=== PATIENT | male | born 1930 | race Caucasian/White ===

== ENCOUNTER 2016-09-19 15:22 | Inpatient (IN) ==
[2016-09-19] MEDS ORDERED: *HR* Labetalol 20 MG/4 ML SYRINGE IVP ONE (16:18)
--- NOTE | 2016-09-19 16:20 | Emergency Department Note ---
Disposition Clinical Impression: Subcapital fracture of neck of right femur, Elevated troponin, Atrial fibrillation with RVR, Acute on chronic renal insufficiency Disposition: Admitted As Inpatient Condition: Fair Time of Disposition: 18:23 Fall HPI - General Chief Complaint: ED Fall Stated Complaint: Fall - Right Hip FX Time Seen by Provider: 09/19/16 15:27 Source: patient, EMS Mode of arrival: EMS Limitations: age, other (dementia) Nursing Notes Reviewed: Yes Vital Signs Reviewed: Yes - History of Present Illness HPI Narrative: Mr. Vergara, an 85yo male, presents from assisted via EMS with concerns regarding right hip fracture. Patient rolled out of bed and landed on his right hip. He does not remember the event. He arrives with Xray report from the facility indicating right hip fracture. No family currently at bedside. He denies any pain while laying still in bed. Patient is on aspirin and plavix for chronic atrial fibrillation. Patient's granddaughter, Mary, is bedside. She notes he is at his baseline mentation with no change in affect. - Related Data Allergies Allergy/AdvReac Type Severity Reaction Status Date / Time Penicillins [PCN] Allergy See Verified 09/19/16 15:25 Comments All systems ED: reviewed and negative except as stated. Fall PMH - Past Medical History Medical history: Reports: atrial fibrillation, diabetes, hyperlipidemia, hypertension, myocardial infarction Psychiatric history: Reports: no psych history - Social History Smoking Status: Never smoker Alcohol use: Reports: none Drug use: Reports: none Physical Exam - General Limitations: altered mental status General appearance: alert, in no apparent distress - Head Head exam: atraumatic, normocephalic, normal inspection - Eye Eye exam: Present: normal appearance, PERRL - ENT ENT exam: mucous membranes moist - Neck Neck exam: Present: normal inspection, full ROM, trachea midline. Absent: tenderness - Chest Chest inspection: Present: normal inspection, symmetric chest wall rise. Absent : tenderness - Respiratory Respiratory exam: Present: normal lung sounds bilaterally. Absent: respiratory distress, wheezes, stridor, accessory muscle use, prolonged expiratory phase - Cardiovascular Cardiovascular exam: Present: tachycardia, irregular rhythm, normal heart sounds - Abdominal Exam Abdominal exam: Present: soft, Non-Tender, normal bowel sounds. Absent: distention, guarding - Extremities Exam Extremities exam: Present: normal capillary refill. Absent: tenderness, pedal edema, joint swelling - Expanded Upper Extremity Exam Shoulder exam: Present: normal inspection Arm exam: Present: normal inspection Elbow exam: Present: normal inspection Forearm/Wrist exam: Present: normal inspection Hand exam: Present: normal inspection - Expanded Lower Extremity Exam Hip/Pelvis exam: Present: external rotation (bilaterally), shortening (right short vs left). Absent: tenderness, swelling, abrasion, ecchymosis, deformity, crepitus, erythema, internal rotation Upper leg exam: Present: normal inspection. Absent: tenderness, swelling, ecchymosis, deformity, erythema Knee exam: Present: normal inspection Lower leg exam: Present: normal inspection Ankle exam: Present: normal inspection Foot/toe exam: Present: normal inspection Neurovascular/Tendon exam: Present: normal capillary refill. Absent: sensory deficit Gait: not tested/not observed - Back Exam Back exam: Present: normal inspection. Absent: tenderness - Neurological Exam Neurological exam: Present: alert. Absent: oriented X3 (Patient's baseline per daughter bedside) - Psychiatric Psychiatric exam: Present: normal affect, normal mood - Skin Skin exam: Present: warm, dry, intact, normal color. Absent: rash, erythema, pallor, mottled Course Course Narrative: EKG shows A. fib with RVR with rate of 110. We will provide 5 mg IV Lopressor and reevaluate. Patient's rhythm is into the 80s to low 100s which is improved from 120s to 140s. Patient's labwor has returned; mildly elevated creatinine and troponin 0.07. Troponin could be from either A. fib with RVR and/or elevated creatinine. He denies chest pain when asked. Initial pelvic and right hip x-ray were not definitive in diagnosing fracture pathology. CT hip and pelvis shows mildly displaced subcapital fracture proximal right femur. CT head unremarkable per radiology read. 17:40 Spoke with on-call orthopedist, Dr. Nick, who agrees to consult on the patient with admission to hospitalist for his other medical problems. 17:45 Spoke with the admitting hospitalist, Dr. Avina, who agrees to accept the patient. Vital Signs Temperature 98.1 F 09/19/16 15:26 Pulse Rate 110 09/19/16 15:26 Respiratory Rate 18 09/19/16 15:26 Blood Pressure 135/104 09/19/16 15:26 O2 Sat by Pulse Oximetry 95 09/19/16 15:26 Temperature 98.1 F 09/19/16 15:26 Pulse Rate 103 09/19/16 17:29 Respiratory Rate 18 09/19/16 17:29 Blood Pressure 125/106 09/19/16 17:29 O2 Sat by Pulse Oximetry 95 09/19/16 17:29 Oxygen Delivery Oxygen Delivery Room Air Fall - Medical Records Medical records reviewed: Yes I reviewed the patient's medical records. - Lab Data Lab results reviewed: Yes I reviewed the patient's lab results. Result diagrams: 09/19/16 16:20 09/19/16 16:20 Lab Results 09/19/16 09/19/16 09/19/16 Range/Units 16:20 16:20 16:20 WBC 15.4 H D (4.3-11.1) K/mcL RBC 3.67 L (4.19-5.50) M/mcL Hgb 11.7 L D (12.9-16.9) g/dL Hct 35.1 L (37.5-50.1) % MCV 95.6 (83.0-100.0) fL MCH 31.9 (28.0-33.3) pg MCHC 33.3 (31.6-35.5) g/dL RDW 14.2 (11.5-14.5) % Plt Count 217 (140-400) K/mcL MPV 10.7 (9.4-12.4) fL Immature Gran % 0.3 (0-4) % Seg Neutrophils % 82.7 % Lymphocytes % 10.1 % Monocytes % 5.4 % Eosinophils % 1.0 % Basophils % 0.5 % Neutrophils # 12.7 H (1.6-8.9) K/mcL Lymphocytes # 1.6 (0.6-4.6) K/mcL Monocytes # 0.8 (0.0-1.3) K/mcL Eosinophils # 0.2 (0.0-0.6) K/mcL Basophils # 0.1 (0.0-0.2) K/mcL PT 11.8 (9.4-12.1) Seconds INR 1.1 APTT 29.6 (26.0-36.0) Seconds Sodium 138 (136-145) mEq/L Potassium 4.2 (3.5-4.5) mEq/L Chloride 102 (98-109) mEq/L Carbon Dioxide 23 (19-29) mEq/L BUN 23 (8-26) mg/dL Creatinine 2.12 H (0.72-1.25) mg/dL Est GFR ( Amer) 36 L (> 60) Est GFR (Non-Af Amer) 30 L (> 60) BUN/Creatinine Ratio 11 (6-26) Glucose 152 H (70-99) mg/dL Calculated Osmolality 293 (280-300) Calcium 10.3 (8.6-10.8) mg/dL Magnesium 1.8 (1.6-2.6) mg/dL Troponin I (0-0.03) ng/mL 09/19/16 Range/Units 16:20 WBC (4.3-11.1) K/mcL RBC (4.19-5.50) M/mcL Hgb (12.9-16.9) g/dL Hct (37.5-50.1) % MCV (83.0-100.0) fL MCH (28.0-33.3) pg MCHC (31.6-35.5) g/dL RDW (11.5-14.5) % Plt Count (140-400) K/mcL MPV (9.4-12.4) fL Immature Gran % (0-4) % Seg Neutrophils % % Lymphocytes % % Monocytes % % Eosinophils % % Basophils % % Neutrophils # (1.6-8.9) K/mcL Lymphocytes # (0.6-4.6) K/mcL Monocytes # (0.0-1.3) K/mcL Eosinophils # (0.0-0.6) K/mcL Basophils # (0.0-0.2) K/mcL PT (9.4-12.1) Seconds INR APTT (26.0-36.0) Seconds Sodium (136-145) mEq/L Potassium (3.5-4.5) mEq/L Chloride (98-109) mEq/L Carbon Dioxide (19-29) mEq/L BUN (8-26) mg/dL Creatinine (0.72-1.25) mg/dL Est GFR ( Amer) (> 60) Est GFR (Non-Af Amer) (> 60) BUN/Creatinine Ratio (6-26) Glucose (70-99) mg/dL Calculated Osmolality (280-300) Calcium (8.6-10.8) mg/dL Magnesium (1.6-2.6) mg/dL Troponin I 0.07 H* (0-0.03) ng/mL - Radiology Data Radiology results reviewed: Yes I reviewed the patient's radiology results. Chest X-Ray 09/19/16 15:32 IMPRESSION: 1. Stable chronic cardiomegaly, without acute cardiopulmonary disease. 2. Apparent foreshortening of the right femoral neck may suggest an acute subcapital fracture of the right hip. Consider further detailed evaluation with a dedicated pelvic CT without contrast. D/ / 09/19/2016 16:22:10 Vineet Gonzales MD / Lulu Andersen Interpreting Provider: Vineet Gonzales MD Hip X-Ray 09/19/16 15:33 IMPRESSION: 1. Stable chronic cardiomegaly, without acute cardiopulmonary disease. 2. Apparent foreshortening of the right femoral neck may suggest an acute subcapital fracture of the right hip. Consider further detailed evaluation with a dedicated pelvic CT without contrast. D/ / 09/19/2016 16:22:10 Vineet Gonzales MD / Lulu Andersen Interpreting Provider: Vineet Gonzales MD Head CT 09/19/16 16:32 IMPRESSION: No acute intracranial abnormality. D/ / Sheba Marcus Cha, MD / Sheba Marcus Cha, MD Interpreting Provider: Sheba Marcus Cha, MD Pelvis CT 09/19/16 16:32 IMPRESSION: 1. Acute mildly displaced subcapital fracture of the proximal right femur. No additional pelvic fracture is identified. 2. Partially visualized 4.8 x 4.4 cm aneurysm of the distal abdominal aorta. Suggest further characterization of this abnormality with a routine follow-up nonurgent CTA of the abdomen and pelvis. D/ / 09/19/2016 17:20:48 Vineet Gonzales MD / Lulu Andersen Interpreting Provider: Vineet Gonzales MD - EKG Data EKG attestation: Yes I reviewed and interpreted this EKG. EKG results narrative: Patient's EKG was interpreted by myself without benefit of formal cardiology interpretation showing the patient is in atrial fibrillation with RVR at a rate of 1 10 bpm with nonspecific T-wave changes. This is unchanged from her prior EKG that was placed on the chart that was from May 182012. Attestation Statement - Attestation Attestation: I personally interviewed and examined this patient and my medical decision- making was reviewed with the ED Resident Physician, Dr. Pierre I agree with the documented findings, disposition and treatment plan as described except to the extent set forth below. Patient is an 85-year-old elderly white male brought in to us from an extended care facility following a fall from his bed. Patient was sent here after he had plain film imaging done at the facility that showed a right hip fracture. Patient has a history of atrial fibrillation and arrives with a tachycardic rate , irregular, but stable blood pressure. Patient appears in no acute distress is quite pleasant and smiling verbally responds to questions but is pleasantly confused oriented to person and place only. Patient states he does not remember falling from his bed. Patient denies any pain complaints or issues until you try to do passive range of motion with his lower extremities. Patient has a shortened and externally rotated right lower extremity compared to left with pain on passive range of motion. He is neurovascularly intact in both lower extremities. He denies any other symptoms at this time. He is a poor historian. I agree with physical exam findings as documented. On my assessment I did not find any other physical sign of trauma on physical exam, no other contusions abrasions lacerations or areas of tenderness on palpation. Patient was placed on residential monitor continuous pulse ox IV saline while was established and labs were drawn and sent as well as portable chest and right hip and pelvis films. Due to patient being on aspirin and Plavix and baseline altered mental status we will obtain CT head to rule out any intracranial injury. Patient also is in atrial fibrillation with RVR and appears to be on metoprolol at home. We will administer a dose of beta filemon IV, for rate control. Patient resting comfortably at this time pelvic CT does show a subcapital right proximal femur fracture, no other pelvic fracture identified. Patient with improved rate control, remains in atrial fibrillation which she has and chronically that rate now 80-100 bpm. BP stable. Patient with acute on chronic renal insufficiency with elevated creatinine as well as positive troponin. Difficult to assess patient is having chest pain but when asking patient directly he denies any discomfort. Will speak with orthopedics consult them to see the patient in regards to the hip injury and admit to medicine for medical management.
[2016-09-19 16:34] LABS: Basophils # 0.1 K/mcL (0.0-0.2); Basophils % 0.5 %; Eosinophils # 0.2 K/mcL (0.0-0.6); Hematocrit 35.1 % (37.5-50.1); Hemoglobin 11.7 g/dL (12.9-16.9); Immature Granulocytes % 0.3 % (0-4); Lymphocytes # 1.6 K/mcL (0.6-4.6); Lymphocytes % 10.1 %; Mean Corpuscular HGB Conc 33.3 g/dL (31.6-35.5); Mean Corpuscular Hemoglobin 31.9 pg (28.0-33.3); Mean Corpuscular Volume 95.6 fL (83.0-100.0); Mean Platelet Volume 10.7 fL (9.4-12.4); Monocytes # 0.8 K/mcL (0.0-1.3); Monocytes % 5.4 %; Neutrophils # 12.7 K/mcL (1.6-8.9); Platelet Count 217 K/mcL (140-400); Red Blood Count 3.67 M/mcL (4.19-5.50); Red Cell Distribution Width 14.2 % (11.5-14.5); Segmented Neutrophils % 82.7 %
[2016-09-19] MEDS ORDERED: *HR* Metoprolol 5 MG/5 ML VIAL IVP ONE (16:37)
[2016-09-19 16:41] LABS: INR 1.1; Prothrombin Time 11.8 Seconds (9.4-12.1)
[2016-09-19 16:44] LABS: Activated Partial Thrombo Time 29.6 Seconds (26.0-36.0)
[2016-09-19 16:47] LABS: Calcium 10.3 mg/dL (8.6-10.8); Magnesium 1.8 mg/dL (1.6-2.6); Potassium 4.2 mEq/L (3.5-4.5)
[2016-09-19] MEDS ORDERED: Naloxone 0.4 MG/ML INJ IVP PRN (18:49)
[2016-09-19] MEDS ORDERED: Acetaminophen 325 MG TABLET PO PRN (18:49)
[2016-09-19] MEDS ORDERED: 0.9 % Sodium Chloride 1,000 ML IVC SCH (19:00)
[2016-09-19] MEDS ORDERED: Dextrose Gel 15 GM PO PRN ×2 (19:31)
[2016-09-19] MEDS ORDERED: *HR* Dextrose 50 % in Water (Syg) 50 ML SYRINGE IVP PRN (19:31)
[2016-09-19] MEDS ORDERED: D5% in Water 1,000 ML IVC PRN (19:31)
--- NOTE | 2016-09-19 19:40 | Internal Med History&Physical ---
Date of Encounter: 09/19/16 Time of Encounter: 18:00 Assessment and Plan (1) Subcapital fracture of neck of right femur Current visit: Yes Status: Acute Orthopedic surgery consulted. Has METS less than 4. Has history of CAD s/p LA. RCRI score of 3 placing him at 11% risk of acute cardiac event for nonemergent surgery. I have consulted Cardiology for surgical clearance due to elevated troponin. Echocardiogram ordered for tomorrow. (2) Atrial fibrillation with RVR Current visit: Yes Status: Acute Patient required IV Lopressor in ED. Will resume patient's home meds for rate control once med reconciliation is completed. For now, will order Metoprolol 50 mg PO BID as heart rate is in low 100s. This dose will need to be discontinued once home meds initiated. Not on anticoagulation due to history of GI bleed. Holding ASA at this time until patient is s/p surgical intervention. (3) Altered mental status Current visit: Yes Status: Acute Patient has history of dementia, but is less oriented today. CXR does not suggest infection. CT head negative. Check UA for possible UTI. Qualifiers: Altered mental status type: disorientation Qualified Code(s): R41.0 - Disorientation, unspecified (4) Elevated troponin Current visit: Yes Status: Acute Likely secondary to demand ischemia. Patient has history of CKD and also presented with Atrial fibrillation with RVR. Echocardiogram ordered and Cardiology consulted. (5) CKD (chronic kidney disease), stage III Current visit: Yes Status: Acute Renal function is at baseline. Avoid nephrotoxins. (6) CAD (coronary artery disease) Current visit: Yes Status: Acute Per granddaughter, no known history of PCI (but she is not entirely certain). If he did have cardiac surgery, it has been many years ago. Thus, will hold Plavix for tomorrow in preparation of surgical intervention. Qualifiers: Coronary Disease-Associated Artery/Lesion type: [place] artery Habematolel vs. transplanted heart: [place] heart Associated angina: angina presence unspecified Qualified Code(s): I25.10 - Atherosclerotic heart disease of [place] coronary artery without angina pectoris (7) DVT prophylaxis Current visit: Yes Status: Acute intermittent compression devices ordered. Daytime hospitalist may transition this to subQ anticoagulation in 24 hours or s/p surgical intervention (assess clinical appropriateness). Internal Medicine - H&P: HPI Chief complaint: Fall, R-leg pain Admitted From: Long-term Nursing Facility Plans for Post Hospital Care: Transfer Lab Tester Care History of present illness: Mr. 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 The patient's granddaughter is at the bedside and was able to provide some information. The retirement informed her that the patient reached for his remote control last evening and subsequent he fell on the floor; they ordered x-rays for today and discovered that patient has a right femur fracture. Patient is usually oriented to himself, but is not oriented to himself today and answers to questions have been inappropriate. He initially complained of right leg pain on arrival to the ED, but has denied pain ever since and has not required any narcotic pain medication. Daughter states that her uncle is the power of contract attorney, but he is out of town. She believes that he is "DNR" but is not certain. Despite swelling and bruising of his left right thumb, he continues to deny any pain. Unable to obtain any further history as the granddaughter is unsure of most of his medical history. Past Med Surg Social Fam HX - Past Medical History Medical history: atrial fibrillation, diabetes, hyperlipidemia, hypertension, myocardial infarction Psychiatric history: depression - Past Surgical History Surgical History: no surgical history (unknown surgical history) - Social History Smoking Status: Never smoker Smokeless Tobacco Status: No Alcohol use: none (prior history of alcoholism before living in retirement) Drug use: none Current living situation: ECF - Family History Mother History Unknown: Yes Internal Medicine - H&P: Meds Allergies Penicillins [PCN] Allergy (Verified 09/19/16 15:25) See Comments ROS unobtainable: due to mental status All Systems PM: A 10-system review of systems was performed and is negative for pertinent findings except as documented above in the HPI. - Constitutional Vitals: Temp Pulse Resp BP Pulse Ox 98.1 F 103 18 125/106 95 09/19/16 15:26 09/19/16 17:29 09/19/16 17:29 09/19/16 17:29 09/19/16 17:29 General appearance: Present: no acute distress Exam: awake and responds to some commands. Is pleasantly confused. - Head Head exam: Present: atraumatic - Eye Eye exam: Present: EOMI - ENT ENT exam: Present: mucous membranes moist - Neck Neck exam general surgery: Present: full ROM. Absent: tenderness - Respiratory Respiratory exam: Present: CTAB - Cardiovascular Cardiovascular exam: Present: irregular rhythm, +S1, +S2 - GI/Abdominal GI/Abdominal exam: Present: soft, no peritoneal signs. Absent: tenderness - Extremities Exam Extremities exam: Present: normal capillary refill, radial pulses palpable and symetrical. Absent: tenderness Additional comments: pedal pulses within normal limits. ROM not assessed due to known fracture - Neurological Exam Neurological exam: Present: alert, altered Internal Med - H&P Results - Labs CBC & Chem 7: 09/19/16 16:20 09/19/16 16:20 - EKG Data -: EKG Interpreted by Myself (atrial fibrillation )
[2016-09-19] MEDS: *HR* HYDROcodone/Acet 5/325 mg TABLET PO PRN (20:37)
[2016-09-19] MEDS: Insulin LISPRO 300 UNITS/3 ML VIAL SQ SCH (22:25)
[2016-09-20 03:09] LABS: Hematocrit 37.1 % (37.5-50.1); Hemoglobin 12.2 g/dL (12.9-16.9); Mean Corpuscular HGB Conc 32.9 g/dL (31.6-35.5); Mean Corpuscular Hemoglobin 31.9 pg (28.0-33.3); Mean Corpuscular Volume 96.9 fL (83.0-100.0); Platelet Count 229 K/mcL (140-400); Red Blood Count 3.83 M/mcL (4.19-5.50); Red Cell Distribution Width 14.4 % (11.5-14.5)
[2016-09-20 03:10] LABS: INR 1.1; Prothrombin Time 12.1 Seconds (9.4-12.1)
[2016-09-20 03:13] LABS: Activated Partial Thrombo Time 28.4 Seconds (26.0-36.0)
[2016-09-20 03:23] LABS: Albumin 3.7 g/dL (3.5-5.0); Bilirubin,Total 1.1 mg/dL (0.2-1.2); Calcium 10.2 mg/dL (8.6-10.8); Chol/HDL Ratio 3.6 (0-4.9); Globulin 3.8 g/dL (2.4-3.5); Potassium 4.4 mEq/L (3.5-4.5); Total Protein 7.5 g/dL (6.0-8.3)
--- NOTE | 2016-09-20 07:15 | Anesthesia Evaluation PreOp ---
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: Other (AMS/dementia) Other Medical History: Renal (ckd III), Diabetes Type II Alcohol Use: none (h/o alcoholism) Drug use: none Medications and Allergies Allergies Penicillins [PCN] Allergy (Verified 09/19/16 15:25) See Comments - Meds/Allergy Pre-op Review Medications Reviewed: Yes Allergies Reviewed: Yes Beta Blockers on Current Med List: Yes If Beta Blockers taken, Date/Time (Last Dose taken): metoprolol 09/19 at 22:13 Anesthesia Results - Labs 09/20/16 02:49 09/20/16 02:49 Anesthesia Exam Vital Signs/O2 Sat/Glucose, Most Current Temp Pulse Resp BP Pulse Ox 09/20/16 05:57 98.1 F 97 16 136/76 95 Height: 1.83 Weight: 91 NPO (# of Hours): >8 Anesthesia Assess/Plan ASA Score: 3 Modified Rashaun Scale for Level of Consciousness: Cooperative, oriented, and tranquil Anesthetic Plan: General Monitoring Plan: Standard Monitors Recovery Plan: PACU
[2016-09-20] MEDS: Insulin LISPRO 300 UNITS/3 ML VIAL SQ SCH ×4 (08:52→21:01)
[2016-09-20] MEDS: Pantoprazole 40 MG VIAL IVP SCH (08:53)
--- NOTE | 2016-09-20 09:08 | Orthopedic Consult Note ---
Date of Encounter: 09/20/16 Time of Encounter: 08:59 Assessment and Plan (1) Subcapital fracture of neck of right femur Current Visit: Yes Status: Acute The patient does have a displaced right femoral neck fracture. My recommendation at this point is for right hip hemiarthroplasty in order to stabilize the right hip to provide pain control and help facilitate nursing care. The patient requires cardiac clearance prior to surgery and is undergoing echocardiography. The risks of surgery include but are not limited to stiffness, bleeding, infection, blood clots, damage to neurovascular structures, tendons, ligaments, and bone. There is also a risk of prosthetic infection, or prosthetic dislocation. There is also risk of postoperative venous thromboembolism. I will readdress these risks as well as the reasonable , forseeable postoperative course with the power of boat officer when I am able to contact him. We will proceed with surgery once consent can be obtained and when medically stable. History of Present Illness HPI: Mr. Vergara is a 85 year old male who is a resident of [facility]. He has a history of dementia, atrial fibrillation, and GI bleed. He is currently on aspirin and Plavix. He was admitted to the hospitalist after a fall which resulted in a right displaced femoral neck fracture. He was also found to have a nondisplaced fracture of the left thumb distal phalanx. Orthopedics was consulted to assist in the evaluation and management of these conditions. The patient does not have any family members at the bedside. I did attempt to call [facility], however after multiple attempts over the course of 2 hours, there was a busy signal and no and was able to be reached. No one is listed as official power of boat officer on the transferring documents, though I am able to obtain the phone number of the patient's granddaughter, Mary, and I did have a meaningful discussion with her. She indicates that the patient's son is the official power of boat officer, however I am not able to reach him at this point. Mary was able to provide some information on the patient's medical history, and she does indicate that the patient was found to have an abdominal aortic aneurysm about 4 years ago and did have an episode of coughing up blood at that time. Apparently an upper endoscopy did demonstrate a GI bleed, though the details are not entirely clear. She indicates that the patient has not had any bleeding episodes in the last 4 years otherwise. The patient does not verbalize any complaints. Unable to obtain any associated signs or symptoms are modifying factors. Past Med Surg Social Fam HX - Past Medical History Medical history: atrial fibrillation, diabetes, hyperlipidemia, hypertension, myocardial infarction Psychiatric history: depression - Past Surgical History Surgical History: no surgical history - Social History Smoking Status: Never smoker Smokeless Tobacco Status: No Alcohol use: none (h/o alcoholism) Drug use: none - Family History Mother History Unknown: Yes Medications and Allergies Allergies Penicillins [PCN] Allergy (Verified 09/19/16 15:25) See Comments ROS unobtainable: due to mental status Physical Exam - Constitutional Vitals: Temp Pulse Resp BP Pulse Ox 98.1 F 97 16 136/76 95 09/20/16 05:57 09/20/16 05:57 09/20/16 05:57 09/20/16 05:57 09/20/16 05:57 Constitutional -Vitals reviewed -The patient is well developed and well nourished. -Mood is pleasant. -The patient is well groomed. Psychiatric -Dementia; only oriented to self Respiratory: -Respiratory effort normal Abdomen: -Soft abdomen -Non tender -Non distended: Left upper extremity: -No deformities. The overlying skin is intact. -Ecchymosis to the thumb tip, with mild swelling. -No tenderness to palpation throughout. -No significant pain with passive motion of the shoulder, elbow, wrist, and fingers within the limits of the bed. -Unable to obtain a meaningful neurologic exam given his mental status. -Radial pulse is present; Fingers have good capillary refill. Right upper extremity: -No deformities. The overlying skin is intact. No obvious signs of acute trauma. -No tenderness to palpation throughout. -No significant pain with passive motion of the shoulder, elbow, wrist, and fingers within the limits of the bed. -Unable to obtain a meaningful neurologic exam given his mental status. -Radial pulse is present; Fingers have good capillary refill. Left lower extremity: -No deformities. The overlying skin is intact. No obvious signs of acute trauma. -No tenderness to palpation throughout. -No pain with passive motion of the hip, knee, ankle, and toes within the limits of the bed. -No pain with axial loading of the thigh. -Unable to obtain a meaningful neurologic exam given his mental status. -Toes have good capillary refill. Right lower extremity: -Shortening of the limb. The overlying skin is intact. -No tenderness to palpation throughout. -The patient does have significant pain with attempts at passively ranging the right hip. -Unable to obtain a meaningful neurologic exam given his mental status. -Toes have good capillary refill. Diagnostic Imaging: I did personally review and interpret x-rays as well as a CT scan of the right hip which do show a displaced right femoral neck fracture. CT scan of the brain does not show any acute intracranial abnormalities. X-ray of the left thumb does show what is likely a nondisplaced volar base fracture of the thumb distal phalanx. Results - Labs Result Diagrams: 09/20/16 02:49 09/20/16 02:49 Labs: Abnormal lab results WBC 15.1 K/mcL (4.3-11.1) H 09/20/16 02:49 RBC 3.83 M/mcL (4.19-5.50) L 09/20/16 02:49 Hgb 12.2 g/dL (12.9-16.9) L 09/20/16 02:49 Hct 37.1 % (37.5-50.1) L 09/20/16 02:49 Neutrophils # 12.7 K/mcL (1.6-8.9) H 09/19/16 16:20 Creatinine 2.12 mg/dL (0.72-1.25) H 09/20/16 02:49 Est GFR ( Amer) 36 (> 60) L 09/20/16 02:49 Est GFR (Non-Af Amer) 30 (> 60) L 09/20/16 02:49 Glucose 139 mg/dL (70-99) H 09/20/16 02:49 Troponin I 0.08 ng/mL (0-0.03) H* 09/20/16 02:49 Globulin 3.8 g/dL (2.4-3.5) H 09/20/16 02:49 Albumin/Globulin Ratio 1.0 (1.1-2.2) L 09/20/16 02:49 LDL Cholesterol, Calc 124 mg/dL (0-99) H 09/20/16 02:49 H & H 09/20/16 Range/Units 02:49 Hgb 12.2 L (12.9-16.9) g/dL Hct 37.1 L (37.5-50.1) % All other labs normal. Consult Discharge Plan - Plan Referrals: NO,PCP [Primary Care Provider] -
--- NOTE | 2016-09-20 09:55 | Cardiology Consult Note ---
Date of Encounter: 09/20/16 Time of Encounter: 09:45 Assessment and Plan (1) Preoperative cardiovascular examination Current Visit: Yes Status: Acute Cardiology consultation prior to surgical repair of RLE femur fx d/t mechanical fall. Resides at [facility], has dementia. Family not at bedside upon exam. No acute ischemic findings noted on ECG upon presentation. Mild, adynamic troponin elevation in the setting of fall with fx and CKD. Hx of moderately-severe CAD, EF30%. Most recent TTE shows LVEF 45-50%. Repeat echocardiogram pending. Currently, there are no unstable cardiac symptoms prohibiting patient to proceed with urgent orthopedic procedure; he is considered to be at increased risk given his co-morbidities. Discussion w patient/family: The assessment and plan as outlined above was discussed with the patient and/or family members who expressed understanding and agreement. All questions were answered. Thank you for involving us in the care of your patient. Please call with any questions. The patient will be discussed and reviewed with Dr. Diane; changes to be made accordingly. History of Present Illness Consult date: 09/20/16 Requesting physician: Eli Dobbs Consult reason: preop risk stratification Chief complaint: fall with fx History of present illness: Mr. Vergara is a 85 year old male with PMHx significant for CAD, AF, GI bleed, hx ETOH abuse, HTN DMII, and dementia who presented to [facility] after mechanical fall resulting in right femur fx. Cardiology consulted today for pre-operative risk stratification prior to surgery. He is pleasantly confused and unable to recall any events regarding fall or PMH. Surgical repair has been postponed until tomorrow. Prior CV testing ([facility]): C 05/17/12: moderately severe 3vCAD, EF 30% TTE 05/12/12: LVEF 45-50%, basal inferior wall was akinetic, no significant valvular dysfunction. Past Med Surg Social Fam HX - Past Medical History Source: old records reviewed Medical history: atrial fibrillation, coronary artery disease, diabetes, hyperlipidemia, hypertension, myocardial infarction Psychiatric history: depression - Past Surgical History Surgical History: no surgical history - Social History Smoking Status: Former smoker Smokeless Tobacco Status: No Alcohol use: none (h/o alcoholism) Drug use: none Current living situation: ECF - Family History Mother History Unknown: Yes Medications and Allergies Allergies Penicillins [PCN] Allergy (Verified 09/19/16 15:25) See Comments ROS unobtainable: due to mental status All Systems Review: A 10-system review of systems was performed and is negative for pertinent findings except as documented above in the HPI. Physical Examination Vital Signs, Last 4 Hours Temp Pulse Resp BP Pulse Ox 09/20/16 05:57 98.1 F 97 16 136/76 95 General: Conversant (pleasantly confused), No Apparent Distress HEENT: Atraumatic, Normocephaly Cardiac: Other (irregularly irregular) Lungs: Normal Breath Sounds Neuro: No focal deficits noted Abdomen: Soft Extremities: No Edema, Normal Pulses Results 09/20/16 02:49 09/20/16 02:49 Lab Results 09/19/16 09/20/16 09/20/16 19:45 02:49 02:49 WBC 15.1 H Hgb 12.2 L Hct 37.1 L Plt Count 229 INR APTT Sodium Potassium Chloride Carbon Dioxide BUN Creatinine Glucose Calcium Total Bilirubin AST ALT Alkaline Phosphatase Troponin I 0.07 H* 0.08 H* 09/20/16 09/20/16 09/20/16 02:49 02:49 08:50 WBC Hgb Hct Plt Count INR 1.1 APTT 28.4 Sodium 139 Potassium 4.4 Chloride 103 Carbon Dioxide 23 BUN 26 Creatinine 2.12 H Glucose 139 H Calcium 10.2 Total Bilirubin 1.1 AST 17 ALT 8 Alkaline Phosphatase 70 Troponin I 0.07 H* - Imaging and Cardiology Echo: report reviewed Cardiac cath: report reviewed Other Results: 12 hour tele: avg HR=83 afib. - EKG Interpretation EKG results cardiology: personally reviewed Consult Discharge Plan - Plan Referrals: NO,PCP [Primary Care Provider] -
--- NOTE | 2016-09-20 11:49 | Internal Med Progress Note ---
Date of Encounter: 09/20/16 Time of Encounter: 11:46 - Assessment and plan (1) Subcapital fracture of neck of right femur Current Visit: Yes Status: Acute Assessment and plan: being followed by ortho awaiting consent, planned for surgery continue DVT prophylaxis, management as per ortho. pain control (2) Elevated troponin Current Visit: Yes Status: Acute Assessment and plan: No acute ischemic findings noted on ECG upon presentation. Mild, adynamic troponin elevation in the setting of fall with fx and CKD as per cardio. no need for further trend of trop. (3) CKD (chronic kidney disease), stage III Current Visit: Yes Status: Acute Assessment and plan: Renal function is at baseline. Avoid nephrotoxins. (4) CAD (coronary artery disease) Current Visit: Yes Status: Acute Assessment and plan: No acute ischemic findings noted on ECG upon presentation. Mild, adynamic troponin elevation in the setting of fall with fx and CKD. Hx of moderately-severe CAD, EF30%. Most recent TTE shows LVEF 45-50%. TTE today shows LVEF 45-50% with hypokinesis of the basal inferior wall and basal inferoseptum. LVEF is unchanged compared to his prior TTE in 2012. He denies any chest pain. cardio recommend that he proceeds with his planned orthopedic surgery without any further testing . He is at intermediate risk of nils-operative cardiovascular complications. Qualifiers: Coronary Disease-Associated Artery/Lesion type: [place] artery [place] vs. transplanted heart: [place] heart Associated angina: angina presence unspecified Qualified Code(s): I25.10 - Atherosclerotic heart disease of [place] coronary artery without angina pectoris - Subjective Interval history: patinet seen at the bedside, demented and unable to provide any h/o. presented with RLE femur fx d/t mechanical fall. denies any pain at the bedside,awaiting to hear from POA for consent, appreciate cardio recommendations being followed by ortho - Constitutional Vitals: Temp Pulse Resp BP Pulse Ox 98.1 F 78 16 150/73 95 09/20/16 11:17 09/20/16 11:17 09/20/16 11:17 09/20/16 11:17 09/20/16 11:17 General appearance: Present: A&O X 1, no acute distress Exam: HEENT: Atraumatic, Normocephaly Cardiac: Other (irregularly irregular) Lungs: Normal Breath Sounds Neuro: No focal deficits noted Abdomen: Soft Extremities: No Edema, Normal Pulses Internal Medicine: Result - Labs CBC & Chem 7: 09/20/16 02:49 09/20/16 02:49 Labs: Short CBC 09/20/16 Range/Units 02:49 WBC 15.1 H (4.3-11.1) K/mcL Hgb 12.2 L (12.9-16.9) g/dL Hct 37.1 L (37.5-50.1) % Plt Count 229 (140-400) K/mcL BMP 09/20/16 02:49 Sodium 139 Potassium 4.4 Chloride 103 Carbon Dioxide 23 BUN 26 Creatinine 2.12 H Glucose 139 H Calcium 10.2 Cardiac Enzymes 09/19/16 09/20/16 09/20/16 Range/Units 19:45 02:49 08:50 Troponin I 0.07 H* 0.08 H* 0.07 H* (0-0.03) ng/mL Liver Function 09/20/16 Range/Units 02:49 Total Bilirubin 1.1 (0.2-1.2) mg/dL AST 17 (5-34) Units/L ALT 8 (0-55) Units/L Alkaline Phosphatase 70 (38-126) Units/L Albumin 3.7 (3.5-5.0) g/dL - ABG Interpretation ABG results: PT/INR, D-dimer PT 12.1 Seconds (9.4-12.1) 09/20/16 02:49 - Impressions Impressions Hand X-Ray 09/19/16 19:20 IMPRESSION: Acute fracture of the distal phalanx of the thumb. D/ / Kuldeep Roldan MD / Kuldeep Roldan MD Interpreting Provider: Kuldeep Roldan MD - VTE Documentation of Mechanical Device: Intermittent pneumatic compression device Consult Discharge Plan - Plan Referrals: NO,PCP [Primary Care Provider] -
[2016-09-20] MEDS: *HR* HYDROcodone/Acet 5/325 mg TABLET PO PRN (20:54)
[2016-09-20 21:15] LABS: Bilirubin,Urine Negative (Negative); Blood,Urine Negative (Negative); Clarity,Urine Clear (Clear); Color,Urine Yellow (Yellow); Glucose,Urine (UA) Normal (Normal); Ketones,Urine Trace mg/dL (Negative); Leukocyte Esterase,Urine Negative (Negative); Nitrite,Urine Negative (Negative); Protein,Urine 100 mg/dL (Neg-Trace); Specific Gravity,Urine 1.021 (1.010-1.025); Urobilinogen,Urine Normal (Normal)
[2016-09-20 21:17] LABS: Bacteria,Urine None Seen per hpf (None-Few); Hyaline Casts,Urine None Seen per lpf (None-Few); Squamous Epithelial Cell,Urine Moderate per lpf (None-Few); WBC,Urine 0-3 per hpf (0-3)
[2016-09-21] MEDS: Insulin LISPRO 300 UNITS/3 ML VIAL SQ SCH ×4 (09:40→20:45)
[2016-09-21] MEDS: Pantoprazole 40 MG VIAL IVP SCH (09:42)
--- NOTE | 2016-09-21 09:45 | Electrocardiograph Report ---
[address] [address] Test Date: 2016-09-19 Pat Name: Kymberly Vergara Department: 102 Room: [facility] Gender: M Brainer: [facility] : 1930 Requested By: Chino Pierre Order Number: [id number] Reading MD: Shyam Myrick MD Measurements Intervals [place] Rate: 110 P: CO: 0 QRS: -27 QRSD: 96 T: 67 QT: 304 QTc: 369 Interpretive Statements ATRIAL FIBRILLATION WITH RAPID VENTRICULAR RESPONSE WITH ABERRANT CONDUCTION OR VENTRICULAR PREMATURE COMPLEXES BORDERLINE LEFT AXIS DEVIATION Poor R wave progression BASELINE ARTIFACT Electronically Signed On 09-21-2016 9:44:01 EDT by Shyam Myrick MD
[2016-09-21 10:21] LABS: Eosinophils # 0.7 K/mcL (0.0-0.6); Hematocrit 36.9 % (37.5-50.1); Hemoglobin 12.1 g/dL (12.9-16.9); Lymphocytes # 1.6 K/mcL (0.6-4.6); Mean Corpuscular HGB Conc 32.8 g/dL (31.6-35.5); Mean Corpuscular Hemoglobin 32.1 pg (28.0-33.3); Mean Corpuscular Volume 97.9 fL (83.0-100.0); Mean Platelet Volume 11.2 fL (9.4-12.4); Platelet Count 199 K/mcL (140-400); Red Blood Count 3.77 M/mcL (4.19-5.50); Red Cell Distribution Width 14.6 % (11.5-14.5)
[2016-09-21 10:37] LABS: Potassium 4.4 mEq/L (3.5-4.5)
[2016-09-21] MEDS: *HR* HYDROcodone/Acet 5/325 mg TABLET PO PRN (10:38)
[2016-09-21 10:41] LABS: Basophils # 0.2 K/mcL (0.0-0.2); Monocytes # 0.2 K/mcL (0.0-1.3); Neutrophils # 8.5 K/mcL (1.6-8.9); Platelet Estimate Normal (Normal)
--- NOTE | 2016-09-21 13:23 | Orthopedics Progress Note ---
Date of Encounter: 09/21/16 Time of Encounter: 08:00 - Assessment and Plan (1) Subcapital fracture of neck of right femur Current Visit: Yes Status: Acute Subjective Interval history: S: Resting bed comfortably, and the pain is well-controlled. O: Afebrile/VSS Inspection of the right thigh shows mild shortening. Tenderness the right groin region and significant pain of the right groin with any attempts at ranging of the right hip. He does grossly motor the toes and the foot is well-perfused. A: Right displaced femoral P: I did have a long discussion with Jan Vergara, the patient's next of kin and son and medical decision maker. The patient has a right displaced femoral neck fracture. I did discuss treatment options and recommended right hip hemiarthroplasty in order to stabilize the right hip, provide pain control, and to help facilitate nursing care. The risks discussed included but were not limited to stiffness, bleeding, infection, blood clots, damage to neurovascular structures, tendons, ligaments, and bone. Also discussed was the risk of continued symptoms and possible need for further procedures. I did discuss the anesthesia risks including stroke, heart attack, and . Additionally I discussed the risks of prosthetic dislocation, infection, and fracture. I did discuss the reasonable, for seeable postoperative course. I explained this to Jan Vergara in simple terms and he did wish to proceed and consent was obtained. The patient has been medically cleared and we will proceed with right hip hemiarthroplasty today. Objective Vital signs: Vital Signs Temp Pulse Resp BP Pulse Ox 09/21/16 11:11 98.3 F 93 20 135/77 96 09/21/16 06:34 98.1 F 95 18 146/92 99 09/21/16 02:26 98.3 F 50 14 123/3 97 09/20/16 23:03 97.9 F 80 16 123/78 95 09/20/16 21:02 93 09/20/16 19:37 98.3 F 80 18 148/85 93 09/20/16 14:27 98.0 F 74 15 143/84 94 Intake and Output 09/20/16 09/21/16 09/21/16 23:59 07:59 15:59 Intake Total 240 / 240 Output Total 250 / 250 Balance -250 / -250 240 / 240 Intake: Oral 240 / 240 Output: Catheter 250 / 250 Other: Meal Dinner Breakfast Percent of Meal Consumed 15% 100% # Urine Diapers 1 Blood Glucose* 124 132 139 - Labs CBC & BMP: 09/21/16 09:50 09/21/16 09:50 Labs: Abnormal lab results WBC 11.2 K/mcL (4.3-11.1) H 09/21/16 09:50 RBC 3.77 M/mcL (4.19-5.50) L 09/21/16 09:50 Hgb 12.1 g/dL (12.9-16.9) L 09/21/16 09:50 Hct 36.9 % (37.5-50.1) L 09/21/16 09:50 RDW 14.6 % (11.5-14.5) H 09/21/16 09:50 Eosinophils # 0.7 K/mcL (0.0-0.6) H 09/21/16 09:50 BUN 38 mg/dL (8-26) H D 09/21/16 09:50 Creatinine 2.13 mg/dL (0.72-1.25) H 09/21/16 09:50 Est GFR ( Amer) 36 (> 60) L 09/21/16 09:50 Est GFR (Non-Af Amer) 30 (> 60) L 09/21/16 09:50 Glucose 116 mg/dL (70-99) H 09/21/16 09:50 POC Glucose 140 (58-89) H 09/20/16 17:15 Troponin I 0.07 ng/mL (0-0.03) H* 09/20/16 08:50 Globulin 3.8 g/dL (2.4-3.5) H 09/20/16 02:49 Albumin/Globulin Ratio 1.0 (1.1-2.2) L 09/20/16 02:49 LDL Cholesterol, Calc 124 mg/dL (0-99) H 09/20/16 02:49 Urine Protein 100 mg/dL (Neg-Trace) H 09/20/16 21:02 Urine Ketones Trace mg/dL (Negative) H 09/20/16 21:02 Urine Microscopic RBC 5-15 per hpf (0-3) H 09/20/16 21:02 Ur Squamous Epith Cells Moderate per lpf (None-Few) H 09/20/16 21:02 - VTE Documentation of Mechanical Device: Intermittent pneumatic compression device Consult Discharge Plan - Plan Referrals: NO,PCP [Primary Care Provider] -
--- NOTE | 2016-09-21 14:15 | Internal Med Progress Note ---
Date of Encounter: 09/21/16 Time of Encounter: 14:13 - Assessment and plan (1) Subcapital fracture of neck of right femur Current Visit: Yes Status: Acute Assessment and plan: being followed by ortho awaiting consent, planned for surgery continue DVT prophylaxis, management as per ortho. pain control (2) Elevated troponin Current Visit: Yes Status: Acute Assessment and plan: No acute ischemic findings noted on ECG upon presentation. Mild, adynamic troponin elevation in the setting of fall with fx and CKD as per cardio. no need for further trend of trop. (3) CKD (chronic kidney disease), stage III Current Visit: Yes Status: Acute Assessment and plan: Renal function is at baseline. Avoid nephrotoxins. (4) CAD (coronary artery disease) Current Visit: Yes Status: Acute Assessment and plan: No acute ischemic findings noted on ECG upon presentation. Mild, adynamic troponin elevation in the setting of fall with fx and CKD. Hx of moderately-severe CAD, EF30%. Most recent TTE shows LVEF 45-50%. TTE today shows LVEF 45-50% with hypokinesis of the basal inferior wall and basal inferoseptum. LVEF is unchanged compared to his prior TTE in 2012. He denies any chest pain. cardio recommend that he proceeds with his planned orthopedic surgery without any further testing . He is at intermediate risk of nils-operative cardiovascular complications. Qualifiers: Coronary Disease-Associated Artery/Lesion type: [place] artery [place] vs. transplanted heart: [place] heart Associated angina: angina presence unspecified Qualified Code(s): I25.10 - Atherosclerotic heart disease of [place] coronary artery without angina pectoris - Subjective Interval history: patinet seen at the bedside, demented and unable to provide any h/o. presented with RLE femur fx d/t mechanical fall. denies any pain at the bedside,awaiting to hear from POA for consent, appreciate cardio recommendations being followed by ortho, planned for surgery once consent is obtained. - Constitutional Vitals: Temp Pulse Resp BP Pulse Ox 98.3 F 93 20 135/77 96 09/21/16 11:11 09/21/16 11:11 09/21/16 11:11 09/21/16 11:11 09/21/16 11:11 General appearance: Present: A&O X 1, no acute distress Exam: HEENT: Atraumatic, Normocephaly Cardiac: Other (irregularly irregular) Lungs: Normal Breath Sounds Neuro: No focal deficits noted Abdomen: Soft Extremities: No Edema, Normal Pulses Internal Medicine: Result - Labs CBC & Chem 7: 09/21/16 09:50 09/21/16 09:50 Labs: Short CBC 09/21/16 Range/Units 09:50 WBC 11.2 H (4.3-11.1) K/mcL Hgb 12.1 L (12.9-16.9) g/dL Hct 36.9 L (37.5-50.1) % Plt Count 199 (140-400) K/mcL Neutrophils # 8.5 (1.6-8.9) K/mcL BMP 09/21/16 09:50 Sodium 139 Potassium 4.4 Chloride 106 Carbon Dioxide 22 BUN 38 H D Creatinine 2.13 H Glucose 116 H Calcium 10.0 Urine 09/20/16 Range/Units 21:02 Urine Color Yellow (Yellow) Urine Clarity Clear (Clear) Urine pH 6.0 (5.0-8.0) pH Units Ur Specific [place] 1.021 (1.010-1.025) Urine Protein 100 H (Neg-Trace) mg/dL Urine Glucose (UA) Normal (Normal) mg/dL - ABG Interpretation ABG results: PT/INR, D-dimer PT 12.1 Seconds (9.4-12.1) 09/20/16 02:49 - VTE Documentation of Mechanical Device: Intermittent pneumatic compression device Consult Discharge Plan - Plan Referrals: NO,PCP [Primary Care Provider] -
[2016-09-21] MEDS ORDERED: Vancomycin 1,000 MG VIAL ONE (15:38)
--- NOTE | 2016-09-21 16:06 | Anesthesia Evaluation PreOp ---
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: Other (dementia) Other Medical History: Renal (CKD stage 3), Diabetes Type II Anesthesia History: No Prior Anesthetic Complications, Past Anesthesia Alcohol Use: none (h/o alcoholism) Drug use: none Medications and Allergies Acetaminophen [Tylenol] 650 mg PO DAILY 09/20/16 [History] Acetaminophen [Tylenol] 650 mg PO Q4H PRN 09/20/16 [History] Aspirin Enteric Coated [Aspirin EC] 81 mg PO DAILY 09/20/16 [History] Benzocaine/Menthol Mirtha [Cepacol Sore Throat Lozenge] 1 lozenge MM Q2H PRN [History] Clopidogrel [Plavix] 75 mg PO DAILY 09/20/16 [History] Cyanocobalamin (Vitamin B-12) [Vitamin B12] 1,000 mcg PO DAILY 09/20/16 [History ] Dextran 70/Hypromellose [Natural Balance Tears Eye Drop] 2 drop BOTH EYES DAILY PRN 09/20/16 [History] Furosemide [Lasix] 20 mg PO DAILY 09/20/16 [History] Glucagon,Human Recombinant [Glucagon Emergency Kit] 1 mg IJ PRN PRN 09/20/16 [ History] Magnesium Hydroxide [Milk of Magnesia] 30 ml PO DAILY PRN 09/20/16 [History] Metformin HCl [Metformin HCl ER] 1,000 mg PO BID 09/20/16 [History] Metoprolol [Lopressor] 25 mg PO BID 09/20/16 [History] Mirtazapine 7.5 mg PO DAILY 09/20/16 [History] Nitroglycerin [Nitrostat] 0.4 mg SL AD PRN 09/20/16 [History] Ondansetron HCl [Zofran] 4 mg PO Q8H PRN 09/20/16 [History] Sertraline [Zoloft] 50 mg PO DAILY 09/20/16 [History] Simvastatin [Zocor] 20 mg PO HS 09/20/16 [History] Allergies Penicillins [PCN] Allergy (Verified 09/19/16 15:25) See Comments - Meds/Allergy Pre-op Review Medications Reviewed: Yes Allergies Reviewed: Yes Beta Blockers on Current Med List: Yes If Beta Blockers taken, Date/Time (Last Dose taken): 09/21/2016 at 0942 Anesthesia Results - Labs 09/21/16 09:50 09/21/16 09:50 - Imaging EKG: report reviewed (09/19/2016 A-Fib, RVR, borderline LAD, NSST abnormality) Additional studies: 09/20/2016 Echo mild LV systolic dysfunction LVEF 45-50% indeterminate diastolic function due to A-Fib mildly dilated LA mild MR and HI mild pulmonary HTN trivial to small pericardial effusion present Anesthesia Exam Vital Signs/O2 Sat/Glucose, Most Recent Temp Pulse Resp BP Pulse Ox 97.7 F 61 16 134/51 94 09/21/16 15:12 09/21/16 15:12 09/21/16 15:12 09/21/16 15:12 09/21/16 15:12 Blood Glucose* 139 Height: 6'/1.83 m Weight: 200 lbs/90.718 kg NPO (# of Hours): 8 Pain Scale: 0 Pain Scale Used: Numeric (1 - 10) - HEENT Pupil (Motor): EOMI Mallampati: II Teeth: Edentulous Oral Opening: Greater than 3 - 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
[2016-09-21] MEDS ORDERED: Clindamycin 900 MG/50 ML 900 MG/50 ML IV.SOLN IVPB ONE (16:36)
[2016-09-21] MEDS ORDERED: EPHEDrine 50 MG/ML VIAL ONE (17:09)
[2016-09-21] MEDS ORDERED: *HR* Labetalol 20 MG/4 ML SYRINGE IVP PRN (17:27)
[2016-09-21] MEDS ORDERED: *HR* Morphine 2 MG/ML SYRINGE IVP PRN (17:27)
[2016-09-21] MEDS ORDERED: Ondansetron 4 MG/2 ML VIAL IVP ONE (17:27)
[2016-09-21] MEDS ORDERED: Ondansetron 4 MG/2 ML VIAL ONE (18:17)
[2016-09-21] MEDS ORDERED: Lidocaine -MPF 4% 5 ML AMPUL ONE (18:17)
[2016-09-21] MEDS ORDERED: Lidocaine -MPF 2% 2 ML VIAL ONE (18:17)
[2016-09-21] MEDS ORDERED: *HR* Succinylcholine 200 MG/10 ML VIAL IVP ONE (18:17)
[2016-09-21] MEDS ORDERED: Dexamethasone 4 MG/ML VIAL ONE (18:17)
[2016-09-21] MEDS ORDERED: *HR* Propofol 200 MG/20 ML VIAL IVP ONE (18:17)
[2016-09-21] MEDS ORDERED: *HR* FentaNYL (PF) 100 MCG/2 ML VIAL ONE (18:17)
[2016-09-21] MEDS ORDERED: Temazepam 15 MG CAPSULE PO PRN (18:20)
[2016-09-21] MEDS ORDERED: Ondansetron 4 MG/2 ML VIAL IVP PRN (18:20)
[2016-09-21] MEDS ORDERED: Sennosides 8.6 MG TABLET PO PRN (18:20)
[2016-09-21] MEDS ORDERED: MOM Conc 10 ML UD.LIQ PO PRN (18:20)
[2016-09-21] MEDS ORDERED: Naloxone 0.4 MG/ML INJ IVP PRN (18:20)
--- NOTE | 2016-09-21 18:41 | Orthopedic Operative Note ---
Date of procedure: 09/21/16 Procedure: OPERATIVE REPORT DATE OF PROCEDURE: 09/21/2016 SURGEON: Gagandeep Nick MD DORMITORY SUPERVISOR(S): There were no assistants PREOPERATIVE DIAGNOSIS: Right displaced femoral neck fracture POSTOPERATIVE DIAGNOSIS: Right displaced femoral neck fracture PROCEDURE: Right hip hemiarthroplasty ANESTHESIA: General anesthesia PREOPERATIVE ANTIBIOTICS: 900 mg of clindamycin ESTIMATED BLOOD LOSS: 100 milliliters FLUIDS: 750 mL URINE OUTPUT: 350 mL IMPLANTS: Biomet Echo Fracture Collared Stem, Standard Offset, 11m x 140 mm; 42 mm monopolar head; 0 taper PREOPERATIVE NOTE AND INDICATIONS: This patient is an 85-year-old male who sustained a right displaced femoral neck fracture. The recommendation was for the above-described procedure in order to stabilize the hip and provide pain control and help facilitate nursing care. The surgical plan was discussed with the patient's next of kin. The risks, benefits, alternatives, and potential complications of this procedure were discussed with the patient and power of professor of voice including injury to veins, arteries, nerves, tendons, ligaments, and bone. Also discussed were the risks of infection, bleeding, pain, blood clots, the possible need for a blood transfusion, the possible need for further procedures, heart attack, stroke, and . Specific risks for this surgery include prosthetic infection, periprosthetic fracture, and dislocation. All of this was explained in simple terms, and the patient's next of kin verbalized understanding and wished to proceed. Consent was given to proceed with surgery. PROCEDURE: The patient was seen in the preoperative holding area where the identify and the consent were confirmed. The right hip was marked. Final questions were answered. The patient was brought back to the operating room and placed supine on the operating room table. A huddle was performed with the patient and all vital surgical team members confirming patient identity, the correct procedure, and the correct operative site. General anesthesia was administered. The patient was placed in the left lateral decubitus position. The right hip was prepped and draped in the usual sterile fashion. A surgical time out was performed immediately preceding the incision with all personnel in the operating room to confirm patient identity, the correct operative site and extremity, correct radiographic studies, availability of appropriate surgical equipment, and agreement on the planned procedure. A curvilinear incision was made and dissection proceeded through the subcutaneous tissue. The fascia was exposed and incised longitudinally in line with the femur curling back proximally and posteriorly while splitting the fibers of the gluteus travis. The greater trochanteric bursa was debrided and the loose areolar tissue was dissected off the femur. A retractor was placed under the abductor musculature. The piriformis was taken down and tagged. The capsule and short external rotators were elevated in a full-thickness flap and tagged for later repair. The fracture was identified and a revision neck osteotomy performed 1 cm proximal to the lesser trochanter. Using a corkscrew, the fractured head was taken out and this did measure 51 mm in size. The acetabulum was debrided of pulvinar and the round ligament. There was good acetabular cartilage. The size 51 mm trial fit nicely within the acetabulum and had good suction. Attention was directed to the proximal femur. A box osteotome was used for lateralization followed by a canal finder and lateralizing reamer. The canal was reamed up to 11 mm. Broaching was performed starting with a size 7 and proceeding up to an 11 mm broach which felt to be quite stable rotationally though the stem was slightly proud. The calcar was planed. A standard offset trial neck and size 51 head trial were placed and the hip was articulated. The leg length felt to be excellent. The hip was taken through a functional range of motion and was felt to be quite stable throughout. The hip was then disarticulated and the trial components removed. 3 L of saline were irrigated through the joint and the definitive stem was impacted into the proximal femur. The definitive 51 mm femoral head was placed and impacted onto the trunnion of the stem. The hip was articulated and again leg lengths felt to be excellent and the hip was stable through a functional range of motion. The wound was irrigated a final time, dried, and 1 g of vancomycin powder was placed in the joint. The capsule was closed over this using drill tunnels through the greater trochanter and the piriformis was tied to the abductor insertion. The deep layer was closed with interrupted #1 Vicryl stitches and the skin was closed with 0 Vicryl, 3-0 Vicryl, and mikel. A sterile dressing was placed and the patient was placed in an abduction pillow supine on her regular bed. The instrument, sponge, and needle counts were correct after wound closure. POST OPERATIVE PLAN: Weight Bearing: As tolerated to the bilateral lower extremities. DVT Prophylaxis: Lovenox Activity: As tolerated with assistance Wound Care: Daily dressing changes on postoperative day 2. Perioperative antibiotic prophylaxis: 2 doses of Clindamycin Social work for discharge planning Follow Up: 2 weeks
--- NOTE | 2016-09-21 19:07 | Anesthesia Evaluation Post Op ---
Date of Encounter: 09/21/16 Time of Encounter: 19:05 - Vital Signs Vital Signs: Vital Signs/O2 Sat/Glucose, Most Current Temp Pulse Resp BP Pulse Ox 09/21/16 18:58 84 20 124/69 98 09/21/16 18:48 97.6 F 100 20 132/88 92 09/21/16 18:38 93 20 139/88 93 09/21/16 18:28 100 24 101/86 95 09/21/16 18:18 97.3 F L 101 24 158/98 93 09/21/16 15:12 97.7 F 61 16 134/51 94 - Lungs Lungs: Clear Ascult./Percussion - Airway Airway: Non-obstructed - Cardiovascular Baseline Rhythm - Mental Status Mental Status: Alert & Oriented, Answers Appropriately - Pain Pain Scale: 1 - Nausea Vomiting Nausea Vomiting: Not Present - Hydration Hydration: NPO - Discharge PostOp Status: Transfer Patient to floor
[2016-09-21] MEDS: Ringers Solution, Lactated 1,000 ML IVC SCH (20:49)
[2016-09-22] MEDS: Clindamycin 900 MG/50 ML 900 MG/50 ML IV.SOLN IVPB SCH ×2 (00:26→07:41)
[2016-09-22] MEDS: *HR* HYDROcodone/Acet 5/325 mg TABLET PO PRN ×3 (01:17→19:01)
[2016-09-22] MEDS: Pantoprazole 40 MG VIAL IVP SCH (07:43)
[2016-09-22] MEDS: Multivit/Ca/Min/Fe/FA 1 TAB TABLET PO SCH (07:46)
[2016-09-22] MEDS: Ascorbic Acid 500 MG TABLET PO SCH ×2 (07:46→18:38)
[2016-09-22] MEDS: Insulin LISPRO 300 UNITS/3 ML VIAL SQ SCH ×4 (08:01→20:36)
--- NOTE | 2016-09-22 08:09 | Orthopedics Progress Note ---
Date of Encounter: 09/22/16 Time of Encounter: 08:03 - Assessment and Plan (1) Subcapital fracture of neck of right femur Current Visit: Yes Status: Acute Subjective Interval history: S: Resting bed comfortably, and the pain is well-controlled. No complaints. O: Afebrile/VSS The dressing is clean and dry. No significant pain with axially loading or log roll of the right hip. He does flex and extend the ankle and the toes of the right foot and the foot is well-perfused. X-rays show right hip hemiarthroplasty in good position. A: Post right hip hemiarthroplasty Left thumb distal phalanx fracture P: -Splint to left thumb; Non op -PT/OT WBAT B/L LE -Up to chair at least BID -Posterior hip precautions -Witt out. -Dressing change tomorrow. -2 doses of post op Clindamycin. -Anticoagulation: History of upper GI bleed 4 years ago and therefore is not on Aspirin 325 for his A-fib. Therefore, I recommend Lovenox 40 mg sq daily for 4 weeks if okay with the hospitalist. Can resume plavix also if okay with the hospitalist. B/L knee high CASA hose and foot pumps. -Anticipate need for rehab upon discharge. Objective Vital signs: Vital Signs Temp Pulse Resp BP Pulse Ox 09/22/16 06:30 98.6 F 100 18 116/73 92 09/22/16 02:54 98.4 F 98 16 116/73 95 09/21/16 23:17 98 F 104 17 118/78 99 09/21/16 22:00 97 09/21/16 21:55 98.0 F 83 14 106/68 97 09/21/16 20:45 98.3 F 89 15 116/71 97 09/21/16 20:15 98.3 F 98 14 119/70 96 09/21/16 19:45 97.8 F 70 16 121/78 95 09/21/16 19:30 97.8 F 88 15 125/77 98 09/21/16 19:08 102 20 98 09/21/16 18:58 84 20 124/69 98 09/21/16 18:48 97.6 F 100 20 132/88 92 09/21/16 18:38 93 20 139/88 93 09/21/16 18:28 100 24 101/86 95 09/21/16 18:18 97.3 F L 101 24 158/98 93 09/21/16 15:12 97.7 F 61 16 134/51 94 09/21/16 11:11 98.3 F 93 20 135/77 96 Intake and Output 09/21/16 09/22/16 09/22/16 23:59 07:59 15:59 Intake Total 50 / 50 150 / 150 Output Total 120 / 120 50 / 50 Balance -70 / -70 100 / 100 Intake: IV Fluids 50 / 50 Cleocin Premix 900 MG/50 50 / 50 ML 900 mg In 50 ml @ 50 mls/hr IVPB Q8HR [facility] Rx#: [id number] Oral 50 / 50 100 / 100 Output: Urine 20 / 20 Estimated Blood Loss 100 / 100 Catheter 50 / 50 Other: Blood Glucose* 133 237 - Labs CBC & BMP: 09/21/16 09:50 09/21/16 09:50 Labs: Abnormal lab results WBC 11.2 K/mcL (4.3-11.1) H 09/21/16 09:50 RBC 3.77 M/mcL (4.19-5.50) L 09/21/16 09:50 Hgb 12.1 g/dL (12.9-16.9) L 09/21/16 09:50 Hct 36.9 % (37.5-50.1) L 09/21/16 09:50 RDW 14.6 % (11.5-14.5) H 09/21/16 09:50 Eosinophils # 0.7 K/mcL (0.0-0.6) H 09/21/16 09:50 BUN 38 mg/dL (8-26) H D 09/21/16 09:50 Creatinine 2.13 mg/dL (0.72-1.25) H 09/21/16 09:50 Est GFR ( Amer) 36 (> 60) L 09/21/16 09:50 Est GFR (Non-Af Amer) 30 (> 60) L 09/21/16 09:50 Glucose 116 mg/dL (70-99) H 09/21/16 09:50 POC Glucose 237 (58-89) H 09/22/16 06:35 Troponin I 0.07 ng/mL (0-0.03) H* 09/20/16 08:50 Globulin 3.8 g/dL (2.4-3.5) H 09/20/16 02:49 Albumin/Globulin Ratio 1.0 (1.1-2.2) L 09/20/16 02:49 LDL Cholesterol, Calc 124 mg/dL (0-99) H 09/20/16 02:49 Urine Protein 100 mg/dL (Neg-Trace) H 09/20/16 21:02 Urine Ketones Trace mg/dL (Negative) H 09/20/16 21:02 Urine Microscopic RBC 5-15 per hpf (0-3) H 09/20/16 21:02 Ur Squamous Epith Cells Moderate per lpf (None-Few) H 09/20/16 21:02 - VTE Documentation of Mechanical Device: Intermittent pneumatic compression device Consult Discharge Plan - Plan Additional Instructions: DISCHARGE INSTRUCTIONS Dr. Nick Hip Hemiarthroplasty Wound Care -Keep wound / incision area clean and dry. -Dressing daily with dry gauze and paper tape. -No baths or swimming until otherwise instructed. -After 14 days, you may begin to shower only if no drainage is present. No submerging the wound under standing water until cleared by your physician (no baths, hot tubs, swimming pools, etc). Sponge baths are the best way to perform personal hygiene while at the same time protecting the wound from moisture. -No scrubbing the wound. You may "pad dry" the wound, but do not rub, as this may open up he wound and pre-dispose to wound infection. -Do not apply lotions or creams to incision site, unless instructed otherwise. -Observe for redness, swelling, or drainage. Please call the clinic immediately if you have fevers, chills with warmth/redness surrounding wound site or if you notice pus drainage from the wound site Activity -No heavy lifting objects greater than 10 pounds. -No driving while on narcotic pain medication. -You may be weight-bear as tolerated on both of your lower extremities. -Use crutches or a walker for ambulation. -Posterior hip precautions for 6 weeks: No bending the hip past 90 degrees. Do not allow the leg to cross the midline of your body (adduction). No twisting motions. Ask your physical therapist to review these precautions with you. Reducing the Risk of Blood Clots -You will need to complete a total 4 week course of Lovenox 40 mg subcutaneously daily. -Wear knee high compression hose 23 hours per day. Discharge Pain Medications -You will be given a prescription for pain medication. Wean off as tolerated. Do not wait to take the pain medication until the pain is severe, as it will be difficult to "catch up" once this occurs. The pain medication usually reaches its full effect ~1 hour after ingesting. -Your prescribed pain medication may contain Tylenol. You must be careful not to exceed 4,000 mg (4 g) of Tylenol (or generic equivalent), from all sources, within a single 24-hour period. -Some common side effects of the narcotic pain medications (Percocet, Oxycodone , Vicodin, etc) include nausea and itching. Benadryl is a great over the counter medication that helps calm your stomach, decreases your anxiety levels, and minimizes the itching. You can easily purchase this at your local pharmacy as an [id number] medication. Please abide by the instructions as printed on t-he bottle. If your nausea persists, make sure to take small amounts of crackers or other cake winder foods. Follow-Up -Follow-up with Dr. Nick office in 2 weeks from the surgery date for a post- operative evaluation. -Call the office at [phone] to schedule or confirm your appointment. -Follow up with your primary care physician to discuss testing for bone mineral density. Referrals: NO,PCP [Primary Care Provider] -
[2016-09-22] MEDS: Ringers Solution, Lactated 1,000 ML IVC SCH (12:33)
[2016-09-22] MEDS: 0.9 % Sodium Chloride 500 ML IVC SCH (12:37)
--- NOTE | 2016-09-22 16:38 | Internal Med Progress Note ---
Date of Encounter: 09/22/16 Time of Encounter: 16:36 - Assessment and plan (1) Subcapital fracture of neck of right femur Current Visit: Yes Status: Acute Assessment and plan: Patient underwent open reduction internal fixation last night. Seems to be doing okay. No complaint of chest pain or shortness of breath. (2) Elevated troponin Current Visit: Yes Status: Acute Assessment and plan: Troponin were noted to be elevated in the range of 0.07 however they are pretty much identical on the test and it is suspected that there may be due to C daily. (3) CKD (chronic kidney disease), stage III Current Visit: Yes Status: Acute Assessment and plan: As noted above his creatinine is stable in the range of 2.12 (4) CAD (coronary artery disease) Current Visit: Yes Status: Acute Assessment and plan: No acute ischemic findings noted on ECG upon presentation. Mild, adynamic troponin elevation in the setting of fall with fx and CKD. Hx of moderately-severe CAD, EF30%. Most recent TTE shows LVEF 45-50%. TTE today shows LVEF 45-50% with hypokinesis of the basal inferior wall and basal inferoseptum. LVEF is unchanged compared to his prior TTE in 2013. He denies any chest pain. cardio recommend that he proceeds with his planned orthopedic surgery without any further testing . . Qualifiers: Coronary Disease-Associated Artery/Lesion type: jena artery [place] vs. transplanted heart: jena heart Associated angina: angina presence unspecified Qualified Code(s): I25.10 - Atherosclerotic heart disease of jena coronary artery without angina pectoris (5) DVT prophylaxis Current Visit: Yes Status: Acute Assessment and plan: Patient has compression devices - Time Spent With Patient 25 - 35 minutes - Subjective Interval history: Mr. Vi Montes is an 85-year-old male admitted for right femoral neck fracture. He underwent open reduction and internal fixation yesterday. He has history of ischemic heart disease and his EF previously was 30% but now noted to be raised to 45-50%. He also has underlying C daily. His troponin which were initially noted to be elevated we will thought to be due to C daily as they are pretty much in the same range of 0.07. His creatinine also stays in the range of 2.12. - Constitutional Vitals: Temp Pulse Resp BP Pulse Ox 97.9 F 78 18 106/72 95 09/22/16 15:13 09/22/16 15:13 09/22/16 15:13 09/22/16 15:13 09/22/16 15:13 General appearance: Present: A&O X 1, no acute distress - Head Head exam: Present: atraumatic, normocephalic - Eye Eye exam: Present: PERRL, conjuntiva pink, sclera anicteric Pupils: Present: PERRL - Neck Neck exam general surgery: Present: supple, trachea midline. Absent: lymphadenopathy - Respiratory Respiratory exam: Present: CTAB. Absent: accessory muscle use, rales, rhonchi, wheezes - Cardiovascular Cardiovascular exam: Present: RRR, +S1, +S2. Absent: diastolic murmur, gallop, rubs, systolic murmur - GI/Abdominal GI/Abdominal exam: Present: normal bowel sounds, soft, no peritoneal signs. Absent: distended, tenderness - Extremities Exam Extremities exam: Present: warm, radial pulses palpable and symetrical. Absent : calf tenderness, cyanotic, pedal edema - Neurological Exam Neurological exam: Present: CN II-XII intact, oriented X3, no focal deficits. Absent: pronater drift, facial droop, speech deficit - Skin Skin exam: Present: dry, intact Internal Medicine: Result - Labs CBC & Chem 7: 09/21/16 09:50 09/21/16 09:50 - ABG Interpretation ABG results: PT/INR, D-dimer PT 12.1 Seconds (9.4-12.1) 09/20/16 02:49 - Impressions Impressions Hip X-Ray 09/21/16 18:19 IMPRESSION: 1. No acute findings identified. D/ / Kvng Boston MD / Kvng Boston MD Interpreting Provider: Kvng Boston MD - VTE Documentation of Mechanical Device: Intermittent pneumatic compression device Consult Discharge Plan - Plan Additional Instructions: DISCHARGE INSTRUCTIONS Dr. Nick Hip Hemiarthroplasty Wound Care -Keep wound / incision area clean and dry. -Dressing daily with dry gauze and paper tape. -No baths or swimming until otherwise instructed. -After 14 days, you may begin to shower only if no drainage is present. No submerging the wound under standing water until cleared by your physician (no baths, hot tubs, swimming pools, etc). Sponge baths are the best way to perform personal hygiene while at the same time protecting the wound from moisture. -No scrubbing the wound. You may "pad dry" the wound, but do not rub, as this may open up he wound and pre-dispose to wound infection. -Do not apply lotions or creams to incision site, unless instructed otherwise. -Observe for redness, swelling, or drainage. Please call the clinic immediately if you have fevers, chills with warmth/redness surrounding wound site or if you notice pus drainage from the wound site Activity -No heavy lifting objects greater than 10 pounds. -No driving while on narcotic pain medication. -You may be weight-bear as tolerated on both of your lower extremities. -Use crutches or a walker for ambulation. -Posterior hip precautions for 6 weeks: No bending the hip past 90 degrees. Do not allow the leg to cross the midline of your body (adduction). No twisting motions. Ask your physical therapist to review these precautions with you. Reducing the Risk of Blood Clots -You will need to complete a total 4 week course of Lovenox 40 mg subcutaneously daily. -Wear knee high compression hose 23 hours per day. Discharge Pain Medications -You will be given a prescription for pain medication. Wean off as tolerated. Do not wait to take the pain medication until the pain is severe, as it will be difficult to "catch up" once this occurs. The pain medication usually reaches its full effect ~1 hour after ingesting. -Your prescribed pain medication may contain Tylenol. You must be careful not to exceed 4,000 mg (4 g) of Tylenol (or generic equivalent), from all sources, within a single 24-hour period. -Some common side effects of the narcotic pain medications (Percocet, Oxycodone , Vicodin, etc) include nausea and itching. Benadryl is a great over the counter medication that helps calm your stomach, decreases your anxiety levels, and minimizes the itching. You can easily purchase this at your local pharmacy as an [id number] medication. Please abide by the instructions as printed on t-he bottle. If your nausea persists, make sure to take small amounts of crackers or other still operator whiskey foods. Follow-Up -Follow-up with Dr. Nick office in 2 weeks from the surgery date for a post- operative evaluation. -Call the office at [phone] to schedule or confirm your appointment. -Follow up with your primary care physician to discuss testing for bone mineral density. Referrals: NO,PCP [Primary Care Provider] -
[2016-09-22] MEDS: *HR* Enoxaparin 30 MG/0.3 ML SYRINGE SQ SCH (18:37)
[2016-09-23] MEDS ORDERED: *HR* LORazepam 2 MG/ML VIAL IVP ONE (01:16)
[2016-09-23] MEDS: Ringers Solution, Lactated 1,000 ML IVC SCH (02:35)
[2016-09-23] MEDS: *HR* HYDROcodone/Acet 5/325 mg TABLET PO PRN (06:50)
[2016-09-23 07:53] LABS: Hematocrit 27.1 % (37.5-50.1)
[2016-09-23 08:01] LABS: Hemoglobin 8.9 g/dL (12.9-16.9)
[2016-09-23] MEDS: Insulin LISPRO 300 UNITS/3 ML VIAL SQ SCH ×4 (08:38→22:43)
[2016-09-23] MEDS: 0.9 % Sodium Chloride 500 ML IVC SCH ×2 (09:11→09:13)
[2016-09-23] MEDS: Ascorbic Acid 500 MG TABLET PO SCH ×2 (09:13→17:21)
[2016-09-23] MEDS: Pantoprazole 40 MG VIAL IVP SCH (09:13)
[2016-09-23] MEDS: Multivit/Ca/Min/Fe/FA 1 TAB TABLET PO SCH (09:13)
--- NOTE | 2016-09-23 12:44 | Physician Discharge Referral ---
ExtendedCare Referral Info Transfer To: SNF Provider in Charge: Viral Provider in Charge after Transfer: PCP Institutional Level of Care: Skilled (patient to follow up with surgeon and primary care physicianDr. leah Leos next week) - Diagnosis (1) Subcapital fracture of neck of right femur Status: Acute (2) Elevated troponin Status: Acute (3) CKD (chronic kidney disease), stage III Status: Acute (4) CAD (coronary artery disease) Status: Acute (5) DVT prophylaxis Status: Acute - Transfer Medications Home Medications: Acetaminophen [Tylenol] 650 mg PO DAILY 09/20/16 [History] Acetaminophen [Tylenol] 650 mg PO Q4H PRN 09/20/16 [History] Aspirin Enteric Coated [Aspirin EC] 81 mg PO DAILY 09/20/16 [History] Benzocaine/Menthol Mirtha [Cepacol Sore Throat Lozenge] 1 lozenge MM Q2H PRN [History] Clopidogrel [Plavix] 75 mg PO DAILY 09/20/16 [History] Cyanocobalamin (Vitamin B-12) [Vitamin B12] 1,000 mcg PO DAILY 09/20/16 [History ] Dextran 70/Hypromellose [Natural Balance Tears Eye Drop] 2 drop BOTH EYES DAILY PRN 09/20/16 [History] Furosemide [Lasix] 20 mg PO DAILY 09/20/16 [History] Glucagon,Human Recombinant [Glucagon Emergency Kit] 1 mg IJ PRN PRN 09/20/16 [ History] Magnesium Hydroxide [Milk of Magnesia] 30 ml PO DAILY PRN 09/20/16 [History] Metformin HCl [Metformin HCl ER] 1,000 mg PO BID 09/20/16 [History] Metoprolol [Lopressor] 25 mg PO BID 09/20/16 [History] Mirtazapine 7.5 mg PO DAILY 09/20/16 [History] Nitroglycerin [Nitrostat] 0.4 mg SL AD PRN 09/20/16 [History] Ondansetron HCl [Zofran] 4 mg PO Q8H PRN 09/20/16 [History] Sertraline [Zoloft] 50 mg PO DAILY 09/20/16 [History] Simvastatin [Zocor] 20 mg PO HS 09/20/16 [History] Allergies/Adverse Reactions: Allergies Penicillins [PCN] Allergy (Verified 09/19/16 15:25) See Comments - Respiratory Orders Smoking Cessation: Smoking cessation has been advised. For more information, call the [place] Tobacco Quit Line at 5-264-OUVD-NOW. CERTIFICATION: I certify that the transfer of the above named patient to an Extended Care Facility is necessary for the continuing treatment of the diagnosis listed. The above information is true and accurate reflection of patient's current condition. Confidential - Redisclosure prohibited without a patient's written consent.
--- NOTE | 2016-09-23 12:55 | Discharge Summary ---
Date of Encounter: 09/23/16 Time of Encounter: 12:51 - Discharge Diagnosis (1) Subcapital fracture of neck of right femur Priority: Primary Status: Acute Comments: patient underwent open reduction and internal fixation of right subcapital fracture of the neck of femur (2) Elevated troponin Priority: Secondary Status: Acute Comments: during this admission patient upon and were elevated in the range of 0.07 however on repeat test to remain in the same it was felt that to there were perhaps due to chronic kidney disease No symptoms of chest painor EKG changes. (3) CKD (chronic kidney disease), stage III Priority: Secondary Status: Acute Comments: an essentially stayed in the [facility] (4) CAD (coronary artery disease) Priority: Secondary Status: Acute Comments: s noted above no chest painor abnormal EKG noted during this admission and elevated troponi. Shazia has history of coronary artery diand previous ejection fraction was around 3 but after with recent echo it has improved to 45- 50%.echocardiogram done during this admission showejection fraction in the same range with hypokinesis of basal inferior wall and inferior septum which is unchangedfrom 2012 echocardiogram Qualifiers: Coronary Disease-Associated Artery/Lesion type: [place] artery [place] vs. transplanted heart: rin[place] heart Associated angina: angina presence unspecified Qualified Code(s): I25.10 - Atherosclerotic heart disease of rincon coronary artery without angina pectoris (5) DVT prophylaxis Priority: Secondary Status: Acute - Discharge Medications Prescriptions: Ferrous Sulfate 325 mg PO BIDWM #60 tablet Home Medications: Acetaminophen [Tylenol] 650 mg PO DAILY 09/20/16 [History] Acetaminophen [Tylenol] 650 mg PO Q4H PRN 09/20/16 [History] Aspirin Enteric Coated [Aspirin EC] 81 mg PO DAILY 09/20/16 [History] Benzocaine/Menthol Mirtha [Cepacol Sore Throat Lozenge] 1 lozenge MM Q2H PRN [History] Clopidogrel [Plavix] 75 mg PO DAILY 09/20/16 [History] Cyanocobalamin (Vitamin B-12) [Vitamin B12] 1,000 mcg PO DAILY 09/20/16 [History ] Dextran 70/Hypromellose [Natural Balance Tears Eye Drop] 2 drop BOTH EYES DAILY PRN 09/20/16 [History] Furosemide [Lasix] 20 mg PO DAILY 09/20/16 [History] Glucagon,Human Recombinant [Glucagon Emergency Kit] 1 mg IJ PRN PRN 09/20/16 [ History] Magnesium Hydroxide [Milk of Magnesia] 30 ml PO DAILY PRN 09/20/16 [History] Metformin HCl [Metformin HCl ER] 1,000 mg PO BID 09/20/16 [History] Metoprolol [Lopressor] 25 mg PO BID 09/20/16 [History] Mirtazapine 7.5 mg PO DAILY 09/20/16 [History] Nitroglycerin [Nitrostat] 0.4 mg SL AD PRN 09/20/16 [History] Ondansetron HCl [Zofran] 4 mg PO Q8H PRN 09/20/16 [History] Sertraline [Zoloft] 50 mg PO DAILY 09/20/16 [History] Simvastatin [Zocor] 20 mg PO HS 09/20/16 [History] Ascorbic Acid [Vitamin C] 500 mg PO BIDWM tablet 09/23/16 [Rx] Enoxaparin [Lovenox] 30 mg SQ DAILY@1800 syringe 09/23/16 [Rx] Ferrous Sulfate 325 mg PO BIDWM #60 tablet 09/23/16 [Rx] Multivit/Ca/Min/Fe/FA [Thera M Plus] 1 tab PO DAILY tablet 09/23/16 [Rx] Omeprazole [PriLOSEC] 20 mg PO DAILY capsule. 09/23/16 [Rx] Allergies/Adverse Reactions: Allergies Penicillins [PCN] Allergy (Verified 09/19/16 15:25) See Comments Date of admission: 09/19/16 18:21 Primary care physician: PCP NO Consults: 09/19/16 19:07 Consult to Principal Web Developer [CONS] Routine Reason for SW Consult: dc planning 09/19/16 19:08 Consult to Occupational Therapy [CONS] Routine Comment: Evaluate, develop and implement POC Reason for Consult: hip fracture Consult to Physical Therapy [CONS] Routine Comment: Evaluate, develop and implement POC Reason for Consult: hip fracture 09/19/16 19:19 Consult to Cardiology [CONS] Routine Comment: Consulting Provider: Gal Diane Reason for Consult: elevated troponin, clearance for surgery Call Completed: No 09/21/16 18:21 Consult to Nurse Navigator [CONS] Routine Comment: ortho navigator Consult to Occupational Therapy [CONS] Routine Comment: Evaluate, develop and implement POC Reason for Consult: total hip replacement Consult to Physical Therapy [CONS] Routine Comment: Evaluate, develop and implement POC Reason for Consult: total hip replacement Consult to Principal Web Developer [CONS] Routine Reason for SW Consult: post op joint replacement RT Post Op Consult [CONS] Routine RT Post Op Consult [CONS] Routine Discharging clinician: Savanah Stratton Anticipated date of discharge: 09/23/16 - Patient Status Disposition: Transfer SNF Condition: Fair Overall status at discharge: patient is progressing back to baseline - Discharge Instructions Follow Up With: Gagandeep Nick MD [Partnered Physician] - 10/05/16 11:00 am NO,PCP [Primary Care Provider] - Additional Instructions: DISCHARGE INSTRUCTIONS Dr. Nick Hip Hemiarthroplasty Wound Care -Keep wound / incision area clean and dry. -Dressing daily with dry gauze and paper tape. -No baths or swimming until otherwise instructed. -After 14 days, you may begin to shower only if no drainage is present. No submerging the wound under standing water until cleared by your physician (no baths, hot tubs, swimming pools, etc). Sponge baths are the best way to perform personal hygiene while at the same time protecting the wound from moisture. -No scrubbing the wound. You may "pad dry" the wound, but do not rub, as this may open up he wound and pre-dispose to wound infection. -Do not apply lotions or creams to incision site, unless instructed otherwise. -Observe for redness, swelling, or drainage. Please call the clinic immediately if you have fevers, chills with warmth/redness surrounding wound site or if you notice pus drainage from the wound site Activity -No heavy lifting objects greater than 10 pounds. -No driving while on narcotic pain medication. -You may be weight-bear as tolerated on both of your lower extremities. -Use crutches or a walker for ambulation. -Posterior hip precautions for 6 weeks: No bending the hip past 90 degrees. Do not allow the leg to cross the midline of your body (adduction). No twisting motions. Ask your physical therapist to review these precautions with you. Reducing the Risk of Blood Clots -You will need to complete a total 4 week course of Lovenox 40 mg subcutaneously daily. -Wear knee high compression hose 23 hours per day. Discharge Pain Medications -You will be given a prescription for pain medication. Wean off as tolerated. Do not wait to take the pain medication until the pain is severe, as it will be difficult to "catch up" once this occurs. The pain medication usually reaches its full effect ~1 hour after ingesting. -Your prescribed pain medication may contain Tylenol. You must be careful not to exceed 4,000 mg (4 g) of Tylenol (or generic equivalent), from all sources, within a single 24-hour period. -Some common side effects of the narcotic pain medications (Percocet, Oxycodone , Vicodin, etc) include nausea and itching. Benadryl is a great over the counter medication that helps calm your stomach, decreases your anxiety levels, and minimizes the itching. You can easily purchase this at your local pharmacy as an [id number] medication. Please abide by the instructions as printed on t-he bottle. If your nausea persists, make sure to take small amounts of crackers or other solar installer foods. Follow-Up -Follow-up with Dr. Nick office in 2 weeks from the surgery date for a post- operative evaluation. -Call the office at [phone] to schedule or confirm your appointment. -Follow up with your primary care physician to discuss testing for bone mineral density. - Diet and Activity Activity: as per physical therapy, increase activity as tolerated Diet: low fat, low cholesterol, low salt diet Interval History: patientwas admitted for right femoral neck fracture and he underwentopen reduction and internal fixation. Do before the procedure and echo cardiogram was done which showed improvement in his ejection in the range of 45-50%. Cardiac-jean he remained stable. His creatinine remained in the range of 2.13. Patient is stable enough to be transferred to nursing home facility Hospital course: Mr. Vergara is a 85 year old male - Time Spent with Patient Total time spent providing and/or coordinating discharge services: Greater than 30 minutes - Constitutional Vitals: Temp Pulse Resp BP Pulse Ox 97.4 F L 100 16 127/81 94 09/23/16 11:03 09/23/16 11:03 09/23/16 11:03 09/23/16 11:03 09/23/16 11:03 General appearance: Present: A&O X 1, no acute distress - Head Head exam: Present: atraumatic, normocephalic - Eye Eye exam: Present: PERRL, conjuntiva pink, sclera anicteric Pupils: Present: PERRL - Neck Neck exam general surgery: Present: supple, trachea midline. Absent: lymphadenopathy - Respiratory Respiratory exam: Present: CTAB. Absent: accessory muscle use, rales, rhonchi, wheezes - Cardiovascular Cardiovascular exam: Present: RRR, +S1, +S2. Absent: diastolic murmur, gallop, rubs, systolic murmur - GI/Abdominal GI/Abdominal exam: Present: normal bowel sounds, soft, no peritoneal signs. Absent: distended, tenderness - Extremities Exam Extremities exam: Present: warm, radial pulses palpable and symetrical. Absent : calf tenderness, cyanotic, pedal edema - Neurological Exam Neurological exam: Present: CN II-XII intact, oriented X3, no focal deficits. Absent: pronater drift, facial droop, speech deficit - Skin Skin exam: Present: dry, intact - VTE Documentation of Mechanical Device: Intermittent pneumatic compression device
--- NOTE | 2016-09-23 13:49 | Orthopedics Progress Note ---
Date of Encounter: 09/23/16 Time of Encounter: 13:47 - Assessment and Plan (1) Subcapital fracture of neck of right femur Current Visit: Yes Status: Acute Subjective Interval history: S: Resting bed comfortably, and the pain is well-controlled. No complaints. O: Afebrile/VSS The dressing is changed and the incision is clean, dry, and intact. No significant pain with axially loading or log roll of the right hip. He does flex and extend the ankle and the toes of the right foot and the foot is well-perfused. A: Post right hip hemiarthroplasty Left thumb distal phalanx fracture P: -Splint to left thumb; Non op -PT/OT WBAT B/L LE -Up to chair at least BID -Posterior hip precautions -Daily dressing changes with dry gauze and paper tape. -2 doses of post op Clindamycin. -Discussed anticoagulation with the hospitalist and will proceed with Lovenox 30 mg subcutaneous daily for 28 days. -This patient is surgically stable for discharge, going to rehab. -Follow-up with me in the office 2 weeks from the surgery date. Objective Vital signs: Vital Signs Temp Pulse Resp BP Pulse Ox 09/23/16 11:03 97.4 F L 100 16 127/81 94 09/23/16 06:48 98.0 F 98 16 146/89 94 09/23/16 03:44 98.7 F 68 16 117/76 95 09/23/16 02:00 90 09/22/16 23:06 97.5 F L 75 15 105/71 90 09/22/16 19:47 97.8 F 69 16 113/62 90 09/22/16 15:13 97.9 F 78 18 106/72 95 Intake and Output 09/22/16 09/23/16 09/23/16 23:59 07:59 15:59 Intake Total 0 / 0 1000 / 1000 10 / 10 Output Total 400 / 400 0 / 0 Balance 0 / 0 600 / 600 10 / 10 Intake: IV Fluids 1000 / 1000 Lactated Ringers 1,000 ML 1000 / 1000 @ 75 mls/hr IVC .[id number] [facility] Rx#:[id number] Oral 0 / 0 10 / 10 Output: Urine 0 / 0 Straight Cath 400 / 400 Other: Meal Dinner Percent of Meal Consumed 10% Weight 69.4 kg Blood Glucose* 154 156 146 Patient Weight 09/23/16 23:59 Weight 69.4 kg - Labs CBC & BMP: 09/23/16 07:42 09/21/16 09:50 Labs: Abnormal lab results WBC 11.2 K/mcL (4.3-11.1) H 09/21/16 09:50 RBC 3.77 M/mcL (4.19-5.50) L 09/21/16 09:50 Hgb 8.9 g/dL (12.9-16.9) L D 09/23/16 07:42 Hct 27.1 % (37.5-50.1) L 09/23/16 07:42 RDW 14.6 % (11.5-14.5) H 09/21/16 09:50 Eosinophils # 0.7 K/mcL (0.0-0.6) H 09/21/16 09:50 BUN 38 mg/dL (8-26) H D 09/21/16 09:50 Creatinine 2.13 mg/dL (0.72-1.25) H 09/21/16 09:50 Est GFR ( Amer) 36 (> 60) L 09/21/16 09:50 Est GFR (Non-Af Amer) 30 (> 60) L 09/21/16 09:50 Glucose 116 mg/dL (70-99) H 09/21/16 09:50 POC Glucose 154 (58-89) H 09/22/16 20:22 Troponin I 0.07 ng/mL (0-0.03) H* 09/20/16 08:50 Globulin 3.8 g/dL (2.4-3.5) H 09/20/16 02:49 Albumin/Globulin Ratio 1.0 (1.1-2.2) L 09/20/16 02:49 LDL Cholesterol, Calc 124 mg/dL (0-99) H 09/20/16 02:49 25-OH Vitamin D Total 21 ng/mL (30-80) L 09/23/16 07:42 Urine Protein 100 mg/dL (Neg-Trace) H 09/20/16 21:02 Urine Ketones Trace mg/dL (Negative) H 09/20/16 21:02 Urine Microscopic RBC 5-15 per hpf (0-3) H 09/20/16 21:02 Ur Squamous Epith Cells Moderate per lpf (None-Few) H 09/20/16 21:02 - VTE Documentation of Mechanical Device: Intermittent pneumatic compression device Consult Discharge Plan - Plan Additional Instructions: DISCHARGE INSTRUCTIONS Dr. Nick Hip Hemiarthroplasty Wound Care -Keep wound / incision area clean and dry. -Dressing daily with dry gauze and paper tape. -No baths or swimming until otherwise instructed. -After 14 days, you may begin to shower only if no drainage is present. No submerging the wound under standing water until cleared by your physician (no baths, hot tubs, swimming pools, etc). Sponge baths are the best way to perform personal hygiene while at the same time protecting the wound from moisture. -No scrubbing the wound. You may "pad dry" the wound, but do not rub, as this may open up he wound and pre-dispose to wound infection. -Do not apply lotions or creams to incision site, unless instructed otherwise. -Observe for redness, swelling, or drainage. Please call the clinic immediately if you have fevers, chills with warmth/redness surrounding wound site or if you notice pus drainage from the wound site Activity -No heavy lifting objects greater than 10 pounds. -No driving while on narcotic pain medication. -You may be weight-bear as tolerated on both of your lower extremities. -Use crutches or a walker for ambulation. -Posterior hip precautions for 6 weeks: No bending the hip past 90 degrees. Do not allow the leg to cross the midline of your body (adduction). No twisting motions. Ask your physical therapist to review these precautions with you. Reducing the Risk of Blood Clots -You will need to complete a total 4 week course of Lovenox 30 mg subcutaneously daily. -Wear knee high compression hose 23 hours per day. Discharge Pain Medications -You will be given a prescription for pain medication. Wean off as tolerated. Do not wait to take the pain medication until the pain is severe, as it will be difficult to "catch up" once this occurs. The pain medication usually reaches its full effect ~1 hour after ingesting. -Your prescribed pain medication may contain Tylenol. You must be careful not to exceed 4,000 mg (4 g) of Tylenol (or generic equivalent), from all sources, within a single 24-hour period. -Some common side effects of the narcotic pain medications (Percocet, Oxycodone , Vicodin, etc) include nausea and itching. Benadryl is a great over the counter medication that helps calm your stomach, decreases your anxiety levels, and minimizes the itching. You can easily purchase this at your local pharmacy as an conh-zqt-[id number] medication. Please abide by the instructions as printed on t-he bottle. If your nausea persists, make sure to take small amounts of crackers or other internet assessor foods. Follow-Up -Follow-up with Dr. Nick office in 2 weeks from the surgery date for a post- operative evaluation. -Call the office at [phone] to schedule or confirm your appointment. -Follow up with your primary care physician to discuss testing for bone mineral density. Referrals: NO,PCP [Primary Care Provider] - Gagandeep Nick MD [Partnered Physician] - 10/05/16 11:00 am Prescriptions: Ferrous Sulfate 325 mg PO BIDWM #60 tablet
[2016-09-23] MEDS: *HR* Enoxaparin 30 MG/0.3 ML SYRINGE SQ SCH (17:21)
[2016-09-23] MEDS ORDERED: 0.9 % Sodium Chloride 500 ML IVC ONE (22:39)
[2016-09-24] MEDS: *HR* HYDROcodone/Acet 5/325 mg TABLET PO PRN ×2 (03:09→21:04)
[2016-09-24] MEDS: Ringers Solution, Lactated 1,000 ML IVC SCH (04:13)
[2016-09-24] MEDS: 0.9 % Sodium Chloride 500 ML IVC SCH (05:11)
--- NOTE | 2016-09-24 07:33 | Urology - Consult Note ---
Date of Encounter: 09/24/16 Time of Encounter: 07:31 - Assessment and Plan (1) Hematuria Current Visit: Yes Status: Acute Assessment and plan: from traumatic cath tugging. resolved. may persist for up to 2-3 weeks. f/u with urology prn. Urology CN:GRIFFIN Consult date: 09/24/16 Reason for consult Urology: Gross Hematuria Requesting physician: Chris Jacinto History of present illness: Kymberly is a 85 y/o male with history of recent hip fracture sp repair. he pulled on his catheter yesterday causing some hematuria. cath was removed last night and patient has voided 2 times since then with clearer urine with each void. minimal pvr on bladder scan. Past Med Surg Social Fam HX - Past Medical History Medical history: atrial fibrillation, coronary artery disease, diabetes, hyperlipidemia, hypertension, myocardial infarction Psychiatric history: depression - Past Surgical History Surgical History: no surgical history - Social History Smoking Status: Former smoker Smokeless Tobacco Status: No Alcohol use: none (h/o alcoholism) Drug use: none - Family History Mother History Unknown: Yes Medications and Allergies Acetaminophen [Tylenol] 650 mg PO DAILY 09/20/16 [History] Acetaminophen [Tylenol] 650 mg PO Q4H PRN 09/20/16 [History] Aspirin Enteric Coated [Aspirin EC] 81 mg PO DAILY 09/20/16 [History] Benzocaine/Menthol Mirtha [Cepacol Sore Throat Lozenge] 1 lozenge MM Q2H PRN [History] Clopidogrel [Plavix] 75 mg PO DAILY 09/20/16 [History] Cyanocobalamin (Vitamin B-12) [Vitamin B12] 1,000 mcg PO DAILY 09/20/16 [History ] Dextran 70/Hypromellose [Natural Balance Tears Eye Drop] 2 drop BOTH EYES DAILY PRN 09/20/16 [History] Furosemide [Lasix] 20 mg PO DAILY 09/20/16 [History] Glucagon,Human Recombinant [Glucagon Emergency Kit] 1 mg IJ PRN PRN 09/20/16 [ History] Magnesium Hydroxide [Milk of Magnesia] 30 ml PO DAILY PRN 09/20/16 [History] Metformin HCl [Metformin HCl ER] 1,000 mg PO BID 09/20/16 [History] Metoprolol [Lopressor] 25 mg PO BID 09/20/16 [History] Mirtazapine 7.5 mg PO DAILY 09/20/16 [History] Nitroglycerin [Nitrostat] 0.4 mg SL AD PRN 09/20/16 [History] Ondansetron HCl [Zofran] 4 mg PO Q8H PRN 09/20/16 [History] Sertraline [Zoloft] 50 mg PO DAILY 09/20/16 [History] Simvastatin [Zocor] 20 mg PO HS 09/20/16 [History] Ascorbic Acid [Vitamin C] 500 mg PO BIDWM tablet 09/23/16 [Rx] Enoxaparin [Lovenox] 30 mg SQ DAILY@1800 syringe 09/23/16 [Rx] Ferrous Sulfate 325 mg PO BIDWM #60 tablet 09/23/16 [Rx] Multivit/Ca/Min/Fe/FA [Thera M Plus] 1 tab PO DAILY tablet 09/23/16 [Rx] Omeprazole [PriLOSEC] 20 mg PO DAILY capsule. 09/23/16 [Rx] Allergies Penicillins [PCN] Allergy (Verified 09/19/16 15:25) See Comments Review of Systems ROS unobtainable: due to mental status Exam Initial Vital Signs Temp Pulse Resp BP Pulse Ox 98.1 F 110 18 135/104 95 09/19/16 15:26 09/19/16 15:26 09/19/16 15:26 09/19/16 15:26 09/19/16 15:26 - General physical appearance Present: well developed - Respiratory Present: normal respiratory effort - Cardiovascular Cardiovascular exam IM: RRR - Abdomen Abdomen: Present: soft Urology Results - Labs 09/23/16 07:42 09/21/16 09:50 Abnormal lab results WBC 11.2 K/mcL (4.3-11.1) H 09/21/16 09:50 RBC 3.77 M/mcL (4.19-5.50) L 09/21/16 09:50 Hgb 8.9 g/dL (12.9-16.9) L D 09/23/16 07:42 Hct 27.1 % (37.5-50.1) L 09/23/16 07:42 RDW 14.6 % (11.5-14.5) H 09/21/16 09:50 Eosinophils # 0.7 K/mcL (0.0-0.6) H 09/21/16 09:50 BUN 38 mg/dL (8-26) H D 09/21/16 09:50 Creatinine 2.13 mg/dL (0.72-1.25) H 09/21/16 09:50 Est GFR ( Amer) 36 (> 60) L 09/21/16 09:50 Est GFR (Non-Af Amer) 30 (> 60) L 09/21/16 09:50 Glucose 116 mg/dL (70-99) H 09/21/16 09:50 Troponin I 0.07 ng/mL (0-0.03) H* 09/20/16 08:50 Globulin 3.8 g/dL (2.4-3.5) H 09/20/16 02:49 Albumin/Globulin Ratio 1.0 (1.1-2.2) L 09/20/16 02:49 LDL Cholesterol, Calc 124 mg/dL (0-99) H 09/20/16 02:49 25-OH Vitamin D Total 21 ng/mL (30-80) L 09/23/16 07:42 Urine Protein 100 mg/dL (Neg-Trace) H 09/20/16 21:02 Urine Ketones Trace mg/dL (Negative) H 09/20/16 21:02 Urine Microscopic RBC 5-15 per hpf (0-3) H 09/20/16 21:02 Ur Squamous Epith Cells Moderate per lpf (None-Few) H 09/20/16 21:02 Calcium panel 09/23/16 Range/Units 07:42 25-OH Vitamin D Total 21 L (30-80) ng/mL All other labs normal. Consult Discharge Plan - Plan Additional Instructions: DISCHARGE INSTRUCTIONS Dr. Nick Hip Hemiarthroplasty Wound Care -Keep wound / incision area clean and dry. -Dressing daily with dry gauze and paper tape. -No baths or swimming until otherwise instructed. -After 14 days, you may begin to shower only if no drainage is present. No submerging the wound under standing water until cleared by your physician (no baths, hot tubs, swimming pools, etc). Sponge baths are the best way to perform personal hygiene while at the same time protecting the wound from moisture. -No scrubbing the wound. You may "pad dry" the wound, but do not rub, as this may open up he wound and pre-dispose to wound infection. -Do not apply lotions or creams to incision site, unless instructed otherwise. -Observe for redness, swelling, or drainage. Please call the clinic immediately if you have fevers, chills with warmth/redness surrounding wound site or if you notice pus drainage from the wound site Activity -No heavy lifting objects greater than 10 pounds. -No driving while on narcotic pain medication. -You may be weight-bear as tolerated on both of your lower extremities. -Use crutches or a walker for ambulation. -Posterior hip precautions for 6 weeks: No bending the hip past 90 degrees. Do not allow the leg to cross the midline of your body (adduction). No twisting motions. Ask your physical therapist to review these precautions with you. Reducing the Risk of Blood Clots -You will need to complete a total 4 week course of Lovenox 30 mg subcutaneously daily. -Wear knee high compression hose 23 hours per day. Discharge Pain Medications -You will be given a prescription for pain medication. Wean off as tolerated. Do not wait to take the pain medication until the pain is severe, as it will be difficult to "catch up" once this occurs. The pain medication usually reaches its full effect ~1 hour after ingesting. -Your prescribed pain medication may contain Tylenol. You must be careful not to exceed 4,000 mg (4 g) of Tylenol (or generic equivalent), from all sources, within a single 24-hour period. -Some common side effects of the narcotic pain medications (Percocet, Oxycodone , Vicodin, etc) include nausea and itching. Benadryl is a great over the counter medication that helps calm your stomach, decreases your anxiety levels, and minimizes the itching. You can easily purchase this at your local pharmacy as an [id number]-[id number] medication. Please abide by the instructions as printed on t-he bottle. If your nausea persists, make sure to take small amounts of crackers or other [place] foods. Follow-Up -Follow-up with Dr. Nick office in 2 weeks from the surgery date for a post- operative evaluation. -Call the office at [phone] to schedule or confirm your appointment. -Follow up with your primary care physician to discuss testing for bone mineral density. Referrals: NO,PCP [Primary Care Provider] - Gagandeep Nick MD [Partnered Physician] - 10/05/16 11:00 am Prescriptions: Ferrous Sulfate 325 mg PO BIDWM #60 tablet
[2016-09-24] MEDS: Insulin LISPRO 300 UNITS/3 ML VIAL SQ SCH ×4 (08:02→21:02)
[2016-09-24] MEDS: Ascorbic Acid 500 MG TABLET PO SCH ×2 (09:16→17:53)
[2016-09-24] MEDS: Multivit/Ca/Min/Fe/FA 1 TAB TABLET PO SCH (09:16)
--- NOTE | 2016-09-24 18:34 | Discharge Summary ---
Date of Encounter: 09/25/16 Time of Encounter: 14:37 - Discharge Diagnosis (1) Subcapital fracture of neck of right femur Priority: Primary Status: Acute (2) Elevated troponin Priority: Secondary Status: Acute (3) CKD (chronic kidney disease), stage III Priority: Secondary Status: Acute (4) CAD (coronary artery disease) Priority: Secondary Status: Acute Qualifiers: Coronary Disease-Associated Artery/Lesion type: [place] artery [place] vs. transplanted heart: [place] heart Associated angina: angina presence unspecified Qualified Code(s): I25.10 - Atherosclerotic heart disease of [place] coronary artery without angina pectoris (5) DVT prophylaxis Priority: Secondary Status: Acute - Discharge Medications Prescriptions: Ferrous Sulfate 325 mg PO BIDWM #60 tablet Home Medications: Acetaminophen [Tylenol] 650 mg PO DAILY 09/20/16 [History] Acetaminophen [Tylenol] 650 mg PO Q4H PRN 09/20/16 [History] Aspirin Enteric Coated [Aspirin EC] 81 mg PO DAILY 09/20/16 [History] Benzocaine/Menthol Mirtha [Cepacol Sore Throat Lozenge] 1 lozenge MM Q2H PRN [History] Clopidogrel [Plavix] 75 mg PO DAILY 09/20/16 [History] Cyanocobalamin (Vitamin B-12) [Vitamin B12] 1,000 mcg PO DAILY 09/20/16 [History ] Dextran 70/Hypromellose [Natural Balance Tears Eye Drop] 2 drop BOTH EYES DAILY PRN 09/20/16 [History] Furosemide [Lasix] 20 mg PO DAILY 09/20/16 [History] Glucagon,Human Recombinant [Glucagon Emergency Kit] 1 mg IJ PRN PRN 09/20/16 [ History] Magnesium Hydroxide [Milk of Magnesia] 30 ml PO DAILY PRN 09/20/16 [History] Metformin HCl [Metformin HCl ER] 1,000 mg PO BID 09/20/16 [History] Metoprolol [Lopressor] 25 mg PO BID 09/20/16 [History] Mirtazapine 7.5 mg PO DAILY 09/20/16 [History] Nitroglycerin [Nitrostat] 0.4 mg SL AD PRN 09/20/16 [History] Ondansetron HCl [Zofran] 4 mg PO Q8H PRN 09/20/16 [History] Sertraline [Zoloft] 50 mg PO DAILY 09/20/16 [History] Simvastatin [Zocor] 20 mg PO HS 09/20/16 [History] Ascorbic Acid [Vitamin C] 500 mg PO BIDWM tablet 09/23/16 [Rx] Enoxaparin [Lovenox] 30 mg SQ DAILY@1800 syringe 09/23/16 [Rx] Ferrous Sulfate 325 mg PO BIDWM #60 tablet 09/23/16 [Rx] Multivit/Ca/Min/Fe/FA [Thera M Plus] 1 tab PO DAILY tablet 09/23/16 [Rx] Omeprazole [PriLOSEC] 20 mg PO DAILY capsule. 09/23/16 [Rx] Docusate [Colace] 100 mg PO BID capsule 09/24/16 [Rx] Oxybutynin [Ditropan] 5 mg PO HS tablet 09/24/16 [Rx] Allergies/Adverse Reactions: Allergies Penicillins [PCN] Allergy (Verified 09/19/16 15:25) See Comments Date of admission: 09/19/16 18:21 Primary care physician: PCP NO Consults: 09/19/16 19:07 Consult to Wiper Blender [CONS] Routine Reason for SW Consult: dc planning 09/19/16 19:08 Consult to Occupational Therapy [CONS] Routine Comment: Evaluate, develop and implement POC Reason for Consult: hip fracture Consult to Physical Therapy [CONS] Routine Comment: Evaluate, develop and implement POC Reason for Consult: hip fracture 09/19/16 19:19 Consult to Cardiology [CONS] Routine Comment: Consulting Provider: Gal Diane Reason for Consult: elevated troponin, clearance for surgery Call Completed: No 09/21/16 18:21 Consult to Nurse Navigator [CONS] Routine Comment: ortho navigator Consult to Occupational Therapy [CONS] Routine Comment: Evaluate, develop and implement POC Reason for Consult: total hip replacement Consult to Physical Therapy [CONS] Routine Comment: Evaluate, develop and implement POC Reason for Consult: total hip replacement Consult to Wiper Blender [CONS] Routine Reason for SW Consult: post op joint replacement RT Post Op Consult [CONS] Routine RT Post Op Consult [CONS] Routine 09/23/16 22:59 Consult to Urology [CONS] Routine Consulting Provider: [facility] Reason for Consult: urethral injury Call Completed: Yes Discharging clinician: Savanah Stratton Anticipated date of discharge: 09/25/16 - Patient Status Disposition: Transfer SNF Condition: Good Overall status at discharge: patient is progressing back to baseline - Discharge Instructions Follow Up With: NO,PCP [Primary Care Provider] - Additional Instructions: DISCHARGE INSTRUCTIONS Dr. Nick Hip Hemiarthroplasty Wound Care -Keep wound / incision area clean and dry. -Dressing daily with dry gauze and paper tape. -No baths or swimming until otherwise instructed. -After 14 days, you may begin to shower only if no drainage is present. No submerging the wound under standing water until cleared by your physician (no baths, hot tubs, swimming pools, etc). Sponge baths are the best way to perform personal hygiene while at the same time protecting the wound from moisture. -No scrubbing the wound. You may "pat dry" the wound, but do not rub, as this may open up he wound and pre-dispose to wound infection. -Do not apply lotions or creams to incision site, unless instructed otherwise. -Observe for redness, swelling, or drainage. Please call the clinic immediately if you have fevers, chills with warmth/redness surrounding wound site or if you notice pus drainage from the wound site Activity -No heavy lifting objects greater than 10 pounds. -No driving while on narcotic pain medication. -You may be weight-bear as tolerated on both of your lower extremities. -Use crutches or a walker for ambulation. -Posterior hip precautions for 6 weeks: No bending the hip past 90 degrees. Do not allow the leg to cross the midline of your body (adduction). No twisting motions. Ask your physical therapist to review these precautions with you. Reducing the Risk of Blood Clots -You will need to complete a total 4 week course of Lovenox 30 mg subcutaneously daily. -Wear knee high compression hose 23 hours per day. Discharge Pain Medications -You will be given a prescription for pain medication. Wean off as tolerated. Do not wait to take the pain medication until the pain is severe, as it will be difficult to "catch up" once this occurs. The pain medication usually reaches its full effect ~1 hour after ingesting. -Your prescribed pain medication may contain Tylenol. You must be careful not to exceed 4,000 mg (4 g) of Tylenol (or generic equivalent), from all sources, within a single 24-hour period. -Some common side effects of the narcotic pain medications (Percocet, Oxycodone , Vicodin, etc) include nausea and itching. Benadryl is a great over the counter medication that helps calm your stomach, decreases your anxiety levels, and minimizes the itching. You can easily purchase this at your local pharmacy as an [id number] medication. Please abide by the instructions as printed on t-he bottle. If your nausea persists, make sure to take small amounts of crackers or other business information analyst foods. Follow-Up -Follow-up with Dr. Nick office in 2 weeks from the surgery date for a post- operative evaluation. -Call the office at [phone] to schedule or confirm your appointment. -Follow up with your primary care physician to discuss testing for bone mineral density. - Diet and Activity Activity: as per physical therapy Diet: advance to your usual diet, low fat, low cholesterol, low salt diet Interval History: Patient is 85-year-old who had an accidental fall at home and broke his hip. He underwent hemiarthroplasty. His planned to be discharged to detention. During hospitalization patient pulled his catheter and urology was consulted. Addendum: Patient was planned to be discharged on 14 however he pulled his Witt catheter and had transient hematuria which has resolved. Urology has seen the patient. Patient will be discharged detention. No change in his chart plan since 14 this month Hospital course: Mr. Vergara is a 85 year old male - Time Spent with Patient Total time spent providing and/or coordinating discharge services: Greater than 30 minutes - Constitutional Vitals: Temp Pulse Resp BP Pulse Ox 97.9 F 94 18 117/76 94 09/24/16 15:38 09/24/16 15:38 09/24/16 15:38 09/24/16 15:38 09/24/16 15:38 General appearance: Present: A&O X 1, no acute distress - Head Head exam: Present: atraumatic, normocephalic - Eye Eye exam: Present: PERRL, conjuntiva pink, sclera anicteric Pupils: Present: PERRL - Neck Neck exam general surgery: Present: supple, trachea midline. Absent: lymphadenopathy - Respiratory Respiratory exam: Present: CTAB. Absent: accessory muscle use, rales, rhonchi, wheezes - Cardiovascular Cardiovascular exam: Present: RRR, +S1, +S2. Absent: diastolic murmur, gallop, rubs, systolic murmur - GI/Abdominal GI/Abdominal exam: Present: normal bowel sounds, soft, no peritoneal signs. Absent: distended, tenderness - Extremities Exam Extremities exam: Present: warm, radial pulses palpable and symetrical. Absent : calf tenderness, cyanotic, pedal edema - Neurological Exam Neurological exam: Present: CN II-XII intact, oriented X3, no focal deficits. Absent: pronater drift, facial droop, speech deficit - Skin Skin exam: Present: dry, intact - VTE Documentation of Mechanical Device: Intermittent pneumatic compression device
[2016-09-24] MEDS: *HR* Enoxaparin 30 MG/0.3 ML SYRINGE SQ SCH (18:40)
--- NOTE | 2016-09-24 18:42 | Internal Med Progress Note ---
Date of Encounter: 09/24/16 Time of Encounter: 18:40 - Assessment and plan (1) Subcapital fracture of neck of right femur Current Visit: Yes Status: Acute Assessment and plan: Patient underwent open reduction internal fixation last night. Seems to be doing okay. No complaint of chest pain or shortness of breath. (2) Elevated troponin Current Visit: Yes Status: Acute Assessment and plan: Troponin were noted to be elevated in the range of 0.07 however they are pretty much identical on the test and it is suspected that there may be due to C daily. (3) CKD (chronic kidney disease), stage III Current Visit: Yes Status: Acute Assessment and plan: As noted above his creatinine is stable in the range of 2.12 (4) CAD (coronary artery disease) Current Visit: Yes Status: Acute Assessment and plan: No acute ischemic findings noted on ECG upon presentation. Mild, adynamic troponin elevation in the setting of fall with fx and CKD. Hx of moderately-severe CAD, EF30%. Most recent TTE shows LVEF 45-50%. TTE today shows LVEF 45-50% with hypokinesis of the basal inferior wall and basal inferoseptum. LVEF is unchanged compared to his prior TTE in 2013. He denies any chest pain. cardio recommend that he proceeds with his planned orthopedic surgery without any further testing . . Qualifiers: Coronary Disease-Associated Artery/Lesion type: [place] artery [place] vs. transplanted heart: [place] heart Associated angina: angina presence unspecified Qualified Code(s): I25.10 - Atherosclerotic heart disease of [place] coronary artery without angina pectoris (5) DVT prophylaxis Current Visit: Yes Status: Acute Assessment and plan: Patient has compression devices (6) Hemorrhage Current Visit: Yes Status: Acute Assessment and plan: And pulled his Witt catheter and developed transient hematuria which resolved spontaneously before there is no need to stop anticoagulation urology has seen the patient we will resume his alpha-filemon's upon discharge - Subjective Interval history: Mr. Vi Montes is an 85-year-old male admitted for right femoral neck fracture. He underwent open reduction and internal fixation yesterday. He has history of ischemic heart disease and his EF previously was 30% but now noted to be raised to 45-50%. He also has underlying C daily. His troponin which were initially noted to be elevated we will thought to be due to C daily as they are pretty much in the same range of 0.07. His creatinine also stays in the range of 2.12. 09/24 patient was planned to be discharged however was pulled his Witt catheter and developed hematuria. Urology was consulted and hematuria has subsided spontaneously. Upon discharge restart his alpha-filemon's which he used to take at home - Constitutional Vitals: Temp Pulse Resp BP Pulse Ox 97.9 F 94 18 117/76 94 09/24/16 15:38 09/24/16 15:38 09/24/16 15:38 09/24/16 15:38 09/24/16 15:38 General appearance: Present: A&O X 1, no acute distress - Head Head exam: Present: atraumatic, normocephalic - Eye Eye exam: Present: PERRL, conjuntiva pink, sclera anicteric Pupils: Present: PERRL - Neck Neck exam general surgery: Present: supple, trachea midline. Absent: lymphadenopathy - Respiratory Respiratory exam: Present: CTAB. Absent: accessory muscle use, rales, rhonchi, wheezes - Cardiovascular Cardiovascular exam: Present: RRR, +S1, +S2. Absent: diastolic murmur, gallop, rubs, systolic murmur - GI/Abdominal GI/Abdominal exam: Present: normal bowel sounds, soft, no peritoneal signs. Absent: distended, tenderness - Extremities Exam Extremities exam: Present: warm, radial pulses palpable and symetrical. Absent : calf tenderness, cyanotic, pedal edema - Neurological Exam Neurological exam: Present: CN II-XII intact, oriented X3, no focal deficits. Absent: pronater drift, facial droop, speech deficit - Skin Skin exam: Present: dry, intact Internal Medicine: Result - Labs CBC & Chem 7: 09/23/16 07:42 09/21/16 09:50 - ABG Interpretation ABG results: PT/INR, D-dimer PT 12.1 Seconds (9.4-12.1) 09/20/16 02:49 - Impressions Impressions Chest X-Ray 09/24/16 13:22 IMPRESSION: Mild cardiomegaly with pulmonary vascular congestion. D/ / Alton Conroy MD / Alton Conroy MD Interpreting Provider: Alton Conroy MD - VTE Documentation of Mechanical Device: Intermittent pneumatic compression device Consult Discharge Plan - Plan Additional Instructions: DISCHARGE INSTRUCTIONS Dr. Nick Hip Hemiarthroplasty Wound Care -Keep wound / incision area clean and dry. -Dressing daily with dry gauze and paper tape. -No baths or swimming until otherwise instructed. -After 14 days, you may begin to shower only if no drainage is present. No submerging the wound under standing water until cleared by your physician (no baths, hot tubs, swimming pools, etc). Sponge baths are the best way to perform personal hygiene while at the same time protecting the wound from moisture. -No scrubbing the wound. You may "pat dry" the wound, but do not rub, as this may open up he wound and pre-dispose to wound infection. -Do not apply lotions or creams to incision site, unless instructed otherwise. -Observe for redness, swelling, or drainage. Please call the clinic immediately if you have fevers, chills with warmth/redness surrounding wound site or if you notice pus drainage from the wound site Activity -No heavy lifting objects greater than 10 pounds. -No driving while on narcotic pain medication. -You may be weight-bear as tolerated on both of your lower extremities. -Use crutches or a walker for ambulation. -Posterior hip precautions for 6 weeks: No bending the hip past 90 degrees. Do not allow the leg to cross the midline of your body (adduction). No twisting motions. Ask your physical therapist to review these precautions with you. Reducing the Risk of Blood Clots -You will need to complete a total 4 week course of Lovenox 30 mg subcutaneously daily. -Wear knee high compression hose 23 hours per day. Discharge Pain Medications -You will be given a prescription for pain medication. Wean off as tolerated. Do not wait to take the pain medication until the pain is severe, as it will be difficult to "catch up" once this occurs. The pain medication usually reaches its full effect ~1 hour after ingesting. -Your prescribed pain medication may contain Tylenol. You must be careful not to exceed 4,000 mg (4 g) of Tylenol (or generic equivalent), from all sources, within a single 24-hour period. -Some common side effects of the narcotic pain medications (Percocet, Oxycodone , Vicodin, etc) include nausea and itching. Benadryl is a great over the counter medication that helps calm your stomach, decreases your anxiety levels, and minimizes the itching. You can easily purchase this at your local pharmacy as an xoqy-fkn-gbiarnm medication. Please abide by the instructions as printed on t-he bottle. If your nausea persists, make sure to take small amounts of crackers or other raiser helper foods. Follow-Up -Follow-up with Dr. Nick office in 2 weeks from the surgery date for a post- operative evaluation. -Call the office at [phone] to schedule or confirm your appointment. -Follow up with your primary care physician to discuss testing for bone mineral density. Referrals: NO,PCP [Primary Care Provider] - Prescriptions: Ferrous Sulfate 325 mg PO BIDWM #60 tablet
[2016-09-25] MEDS: *HR* HYDROcodone/Acet 5/325 mg TABLET PO PRN ×2 (03:00→10:00)
[2016-09-25] MEDS: Insulin LISPRO 300 UNITS/3 ML VIAL SQ SCH ×2 (08:59→12:28)
[2016-09-25] MEDS: Multivit/Ca/Min/Fe/FA 1 TAB TABLET PO SCH (09:00)
[2016-09-25] MEDS: Ascorbic Acid 500 MG TABLET PO SCH (09:00)
[2016-09-25 12:20] VITALS: BP 129/81
--- NOTE | 2016-09-25 14:41 | Physician Discharge Referral ---
[facility] Referral Info Transfer To: SNF Provider in Charge: landon Provider in Charge after Transfer: PCP - Diagnosis (1) Subcapital fracture of neck of right femur Status: Acute (2) Elevated troponin Status: Acute (3) CKD (chronic kidney disease), stage III Status: Acute (4) CAD (coronary artery disease) Status: Acute (5) DVT prophylaxis Status: Acute - Transfer Medications Prescriptions: Ferrous Sulfate 325 mg PO BIDWM #60 tablet Home Medications: Acetaminophen [Tylenol] 650 mg PO DAILY 09/20/16 [History] Acetaminophen [Tylenol] 650 mg PO Q4H PRN 09/20/16 [History] Aspirin Enteric Coated [Aspirin EC] 81 mg PO DAILY 09/20/16 [History] Benzocaine/Menthol Mirtha [Cepacol Sore Throat Lozenge] 1 lozenge MM Q2H PRN [History] Clopidogrel [Plavix] 75 mg PO DAILY 09/20/16 [History] Cyanocobalamin (Vitamin B-12) [Vitamin B12] 1,000 mcg PO DAILY 09/20/16 [History ] Dextran 70/Hypromellose [Natural Balance Tears Eye Drop] 2 drop BOTH EYES DAILY PRN 09/20/16 [History] Furosemide [Lasix] 20 mg PO DAILY 09/20/16 [History] Glucagon,Human Recombinant [Glucagon Emergency Kit] 1 mg IJ PRN PRN 09/20/16 [ History] Magnesium Hydroxide [Milk of Magnesia] 30 ml PO DAILY PRN 09/20/16 [History] Metformin HCl [Metformin HCl ER] 1,000 mg PO BID 09/20/16 [History] Metoprolol [Lopressor] 25 mg PO BID 09/20/16 [History] Mirtazapine 7.5 mg PO DAILY 09/20/16 [History] Nitroglycerin [Nitrostat] 0.4 mg SL AD PRN 09/20/16 [History] Ondansetron HCl [Zofran] 4 mg PO Q8H PRN 09/20/16 [History] Sertraline [Zoloft] 50 mg PO DAILY 09/20/16 [History] Simvastatin [Zocor] 20 mg PO HS 09/20/16 [History] Ascorbic Acid [Vitamin C] 500 mg PO BIDWM tablet 09/23/16 [Rx] Enoxaparin [Lovenox] 30 mg SQ DAILY@1800 syringe 09/23/16 [Rx] Ferrous Sulfate 325 mg PO BIDWM #60 tablet 09/23/16 [Rx] Multivit/Ca/Min/Fe/FA [Thera M Plus] 1 tab PO DAILY tablet 09/23/16 [Rx] Omeprazole [PriLOSEC] 20 mg PO DAILY capsule. 09/23/16 [Rx] Docusate [Colace] 100 mg PO BID capsule 09/24/16 [Rx] Oxybutynin [Ditropan] 5 mg PO HS tablet 09/24/16 [Rx] Allergies/Adverse Reactions: Allergies Penicillins [PCN] Allergy (Verified 09/19/16 15:25) See Comments - Respiratory Orders Smoking Cessation: Smoking cessation has been advised. For more information, call the [place] Tobacco Quit Line at 4-360-YQXPNOW. CERTIFICATION: I certify that the transfer of the above named patient to an Extended Care Facility is necessary for the continuing treatment of the diagnosis listed. The above information is true and accurate reflection of patient's current condition. Confidential - Redisclosure prohibited without a patient's written consent.
== END 2016-09-25 14:15 | DRG 470 ==
LOC: EMEROO 15:22 → 3NENU 18:21
PROVIDERS: ADMIT Internal Medicine; ATTEND Internal Medicine Endocrinology, Diabetes & Metabolism